=== PATIENT | female | born 1930 | race Caucasian/White ===

== ENCOUNTER 2017-03-13 08:28 | Inpatient (IN) ==
[2017-03-13] MEDS ORDERED: Ondansetron 4 MG/2 ML VIAL IVP ONE (08:45)
[2017-03-13] MEDS ORDERED: 0.9 % Sodium Chloride 1,000 ML IVC ONE (08:45)
[2017-03-13] MEDS ORDERED: Sucralfate 1 GM TABLET PO STA (08:46)
--- NOTE | 2017-03-13 08:50 | Emergency Department Note ---
Disposition Clinical Impression: Enteritis, Hyponatremia, Odynophagia, HONG (acute kidney injury) Failure to thrive Qualifiers: Failure to thrive age range: in adult Qualified Code(s): R62.7 - Adult failure to thrive Dysphagia Qualifiers: Dysphagia type: unspecified Qualified Code(s): R13.10 - Dysphagia, unspecified Disposition: Admitted As Inpatient Condition: Undetermined Referrals: Franky Ortiz Jr, MD [Primary Care Provider] - Forms: ED Satisfaction Letter General Adult HPI - General Chief complaint: ED Nausea/Vomiting/Diarrhea Stated complaint: abd pain,N/V Time Seen by Provider: 03/13/17 08:33 Source: patient, family Mode of arrival: ambulatory Limitations: no limitations Nursing Notes Reviewed: Yes Vital Signs Reviewed: Yes - History of Present Illness HPI Narrative: 86-year-old female with history of hypertension, arrives to see emergency department complaining of epigastric and right upper quadrant pain that has been ongoing over the past month. The patient was seen in the emergency Department for diarrhea as well as nausea on February 14. The patient was noted to have stable hypertrophic gastric folds as well as nonspecific narrowing of the proximal ascending colon. The patient states that she has continued to experience nausea, heartburn-type feeling that worsens when she lays flat as well as vomiting bilious type fluid. The patient states that since has continued and she arrives to the emergency department with the symptoms. She denies any diarrhea, melena, hematochezia, hematemesis. Onset (ago): week(s) (4) Location: abdomen Radiation: abdomen Pain Severity: mild Pain Scale: 2 Quality: burning Consistency: intermittent, now resolved Improves with: nothing Worsens with: other (lying flat) Associated symptoms: Reports: nausea/vomiting, weakness Treatments Prior to Arrival: none - Related Data Home Medications Medication Instructions Recorded Confirmed Lansoprazole [Prevacid] 30 mg PO DAILY 03/13/17 03/13/17 Losartan Potassium [Cozaar] 100 mg PO DAILY 03/13/17 03/13/17 Metoprolol Succinate 100 mg PO DAILY 03/13/17 03/13/17 Potassium Chloride 20 mcg PO BID 03/13/17 03/13/17 Previous Rx's Medication Instructions Recorded Ondansetron ODT [Zofran ODT] 4 mg SL Q4HR PRN #6 tab.rapdis 02/27/17 Allergies Allergy/AdvReac Type Severity Reaction Status Date / Time aspirin Allergy See Verified 03/13/17 10:41 Comments Penicillins Allergy Rash Verified 03/13/17 10:41 Sulfa (Sulfonamide Allergy Rash Verified 03/13/17 10:41 Antibiotics) All systems ED: reviewed and negative except as stated. Constitutional: Reports: weakness. Denies: fever, chills Eyes: Denies: vision change ENT ED: Denies: dental pain, congestion Cardiovascular: Denies: chest pain, palpitations, dyspnea on exertion, edema, syncope Respiratory: Denies: cough, dyspnea, wheezes Gastrointestinal: Reports: abdominal pain, nausea, vomiting. Denies: diarrhea, constipation, hematemesis, melena, hematochezia Genitourinary: Denies: urgency, dysuria Musculoskeletal: Denies: back pain, neck pain, arthralgia, myalgia Integumentary: Denies: rash Neurological: Denies: headache, weakness, numbness Past Medical History - Past Medical History Attestation: Yes The following information was validated with the patient. Source: patient Medical history: Reports: diabetes, hypertension Surgical history: Reports: non-contributory Psychiatric history: Reports: no psych history - Social History Smoking Status: Never smoker Smokeless Tobacco Status: No Alcohol use: Reports: none Drug use: Reports: none Physical Exam - General Limitations: no limitations General appearance: alert, in no apparent distress - Head Head exam: atraumatic, normocephalic, normal inspection - Eye Eye exam: Present: normal appearance, PERRL, EOMI - ENT ENT exam: normal exam, normal oropharynx, mucous membranes moist - Neck Neck exam: Present: normal inspection, full ROM, trachea midline - Chest Chest inspection: Present: normal inspection, symmetric chest wall rise - Respiratory Respiratory exam: Present: normal lung sounds bilaterally - Cardiovascular Cardiovascular exam: Present: regular rate, normal rhythm, normal heart sounds - Abdominal Exam Abdominal exam: Present: soft, tenderness. Absent: distention, guarding, rebound, rigidity, heel tap sign, Pascual's sign, Rovsing's sign, tenderness at McBurney's Point Abdominal tenderness: Present: RUQ, epigastrium, moderate - Extremities Exam Extremities exam: Present: normal inspection, full ROM. Absent: tenderness, pedal edema Course Vital Signs Temperature 97.9 F 03/13/17 08:28 Pulse Rate 78 03/13/17 08:28 Respiratory Rate 20 03/13/17 08:28 Blood Pressure 144/90 03/13/17 08:28 O2 Sat by Pulse Oximetry 100 03/13/17 08:28 Temperature 97.9 F 03/13/17 08:28 Pulse Rate 81 03/13/17 10:44 Respiratory Rate 18 03/13/17 10:44 Blood Pressure 140/97 03/13/17 10:44 O2 Sat by Pulse Oximetry 95 03/13/17 10:44 Oxygen Delivery Oxygen Delivery Room Air Medical Decision Making - MDM Narrative Medical decision making narrative: Workup in the emergency department demonstrates enteritis and inflammation of the jejunum. The patient was also noted to be hyponatremic with a sodium of 124. The patient is also noted to have an acute kidney injury on her chronic kidney disease. The patient has been experiencing symptoms consistent with reflux. We will begin the patient on Protonix with the patient's inflammation of her jejunum on CT scan. Given the patient's pain and symptoms of dysphagia and worsening difficulty in eating solids, we will admit the patient to the hospitalist for further care and workup. The patient was made aware and agrees to plan. The patient's daughter agrees that the patient should be admitted. The patient did receive 1 L of IV fluid here in the emergency department. We will speak with the process safety management engineer who gave a recommendation of repeat the sodium later today. He states he will be consulted on the patient. We will admit the patient to the hospitalist service at this time, accepted by Dr. Carvajal. - Medical Records Medical records reviewed: Yes I reviewed the patient's medical records. - Lab Data Lab results reviewed: Yes I reviewed the patient's lab results. Result diagrams: 03/13/17 08:56 03/13/17 08:56 Lab Results 03/13/17 03/13/17 03/13/17 Range/Units 08:50 08:56 08:56 WBC 16.8 H (4.3-11.1) K/mcL RBC 4.19 (3.82-4.97) M/mcL Hgb 13.3 (11.5-15.4) g/dL Hct 38.2 (35.3-44.9) % MCV 91.2 (83.0-100.0) fL MCH 31.7 (28.0-33.3) pg MCHC 34.8 (31.6-35.5) g/dL RDW 12.9 (11.5-14.5) % Plt Count 534 H (140-400) K/mcL MPV 9.8 (9.4-12.4) fL Immature Gran % 0.7 (0-4) % Seg Neutrophils % 75.0 % Lymphocytes % 17.4 % Monocytes % 6.0 % Eosinophils % 0.5 % Basophils % 0.4 % Neutrophils # 12.6 H (1.6-8.9) K/mcL Lymphocytes # 2.9 (0.6-4.6) K/mcL Monocytes # 1.0 (0.0-1.3) K/mcL Eosinophils # 0.1 (0.0-0.6) K/mcL Basophils # 0.1 (0.0-0.2) K/mcL Sodium 124 L (136-145) mEq/L Potassium 5.1 H (3.5-4.5) mEq/L Chloride 96 L (98-109) mEq/L Carbon Dioxide 16 L (19-29) mEq/L BUN 19 (7-20) mg/dL Creatinine 1.36 H (0.57-1.11) mg/dL Est GFR ( Amer) 45 L (> 60) Est GFR (Non-Af Amer) 37 L (> 60) BUN/Creatinine Ratio 14 (6-26) Glucose 140 H (70-99) mg/dL Calculated Osmolality 263 L (280-300) Calcium 9.6 (8.6-10.8) mg/dL Total Bilirubin 0.9 (0.2-1.2) mg/dL Direct Bilirubin 0.3 (0.0-0.5) mg/dL Indirect Bilirubin 0.6 (0.0-1.2) mg/dL AST 21 (5-34) Units/L ALT 18 (0-55) Units/L Alkaline Phosphatase 62 (38-126) Units/L Troponin I (0-0.03) ng/mL Serum Total Protein 7.4 (6.0-8.3) g/dL Albumin 3.7 (3.5-5.0) g/dL Globulin 3.7 H (2.4-3.5) g/dL Albumin/Globulin Ratio 1.0 L (1.1-2.2) Lipase 28 (8-78) Units/L Urine Color Yellow (Yellow) Urine Clarity Slightly Hazy (Clear) Urine pH 6.0 (5.0-8.0) pH Units Ur Specific [place] 1.017 (1.010-1.025) Urine Protein Negative (Neg-Trace) mg/dL Urine Glucose (UA) Normal (Normal) mg/dL Urine Ketones Negative (Negative) mg/dL Urine Blood Negative (Negative) Urine Nitrite Negative (Negative) Urine Bilirubin Negative (Negative) Urine Urobilinogen Normal (Normal) mg/dL Ur Leukocyte Esterase Negative (Negative) Ur Culture Indicated? NO (NO) 03/13/17 Range/Units 08:56 WBC (4.3-11.1) K/mcL RBC (3.82-4.97) M/mcL Hgb (11.5-15.4) g/dL Hct (35.3-44.9) % MCV (83.0-100.0) fL MCH (28.0-33.3) pg MCHC (31.6-35.5) g/dL RDW (11.5-14.5) % Plt Count (140-400) K/mcL MPV (9.4-12.4) fL Immature Gran % (0-4) % Seg Neutrophils % % Lymphocytes % % Monocytes % % Eosinophils % % Basophils % % Neutrophils # (1.6-8.9) K/mcL Lymphocytes # (0.6-4.6) K/mcL Monocytes # (0.0-1.3) K/mcL Eosinophils # (0.0-0.6) K/mcL Basophils # (0.0-0.2) K/mcL Sodium (136-145) mEq/L Potassium (3.5-4.5) mEq/L Chloride (98-109) mEq/L Carbon Dioxide (19-29) mEq/L BUN (7-20) mg/dL Creatinine (0.57-1.11) mg/dL Est GFR ( Amer) (> 60) Est GFR (Non-Af Amer) (> 60) BUN/Creatinine Ratio (6-26) Glucose (70-99) mg/dL Calculated Osmolality (280-300) Calcium (8.6-10.8) mg/dL Total Bilirubin (0.2-1.2) mg/dL Direct Bilirubin (0.0-0.5) mg/dL Indirect Bilirubin (0.0-1.2) mg/dL AST (5-34) Units/L ALT (0-55) Units/L Alkaline Phosphatase (38-126) Units/L Troponin I 0.01 (0-0.03) ng/mL Serum Total Protein (6.0-8.3) g/dL Albumin (3.5-5.0) g/dL Globulin (2.4-3.5) g/dL Albumin/Globulin Ratio (1.1-2.2) Lipase (8-78) Units/L Urine Color (Yellow) Urine Clarity (Clear) Urine pH (5.0-8.0) pH Units Ur Specific [place] (1.010-1.025) Urine Protein (Neg-Trace) mg/dL Urine Glucose (UA) (Normal) mg/dL Urine Ketones (Negative) mg/dL Urine Blood (Negative) Urine Nitrite (Negative) Urine Bilirubin (Negative) Urine Urobilinogen (Normal) mg/dL Ur Leukocyte Esterase (Negative) Ur Culture Indicated? (NO) - Radiology Data Radiology results reviewed: Yes I reviewed the patient's radiology results. Attestation Statement - Attestation Attestation: I examined this patient and my medical decision-making was reviewed with the Resident Physician, Dr. Muir. I agree with the documented findings, disposition and treatment plan as described except to the extent set forth below. Patient is an 86-year-old white female brought in today by her and daughter for ongoing symptoms of difficult swallowing, as well as epigastric pain that radiates up into her chest and into the back of her throat causing a burning-like sensation. Patient was evaluated for these symptoms at the end of January, underwent labs and CT imaging and was discharged home at that time. Patient states she has been unable to get an appointment with her doctor and her appetite has dwindled, she is unable to swallow solid foods without difficulty and she is eating mostly oats and yogurt according to her daughter. Patient appears clinically dehydrated with dry lips and mucous membranes. At the time of my evaluation following Carafate administration patient was denying any abdominal pain no chest pain she states the burning sensation in her chest had completely resolved and she does have burning in her throat and on the roof of her mouth. Patient now complaining of just generalized weakness, underlying nausea and decreased by mouth intake. I agree with patient's physical exam findings as documented. Vital signs are stable on arrival. Patient is awake alert and in no acute distress. Patient underwent lab evaluation including EKG and troponin as well as repeat CT imaging today. Due to her decreased GFR we had to do the study without contrast. Patient's CT shows evidence of enteritis today in association with a leukocytosis and left shift. Patient is also hyponatremic and has metabolic acidosis. Patient was hydrated with IV fluids as and has had improvement with medications of her symptoms and is resting comfortably at bedside at this time with stable vital signs. Patient will be admitted for further evaluation of the enteritis as well as a GI consult for her difficulty swallowing and tolerating solids. Case was discussed with the hospitalist who accepted the patient for admission.
[2017-03-13 09:07] LABS: Basophils # 0.1 K/mcL (0.0-0.2); Basophils % 0.4 %; Eosinophils # 0.1 K/mcL (0.0-0.6); Eosinophils % 0.5 %; Hematocrit 38.2 % (35.3-44.9); Hemoglobin 13.3 g/dL (11.5-15.4); Immature Granulocytes % 0.7 % (0-4); Lymphocytes # 2.9 K/mcL (0.6-4.6); Lymphocytes % 17.4 %; Mean Corpuscular HGB Conc 34.8 g/dL (31.6-35.5); Mean Corpuscular Hemoglobin 31.7 pg (28.0-33.3); Mean Corpuscular Volume 91.2 fL (83.0-100.0); Mean Platelet Volume 9.8 fL (9.4-12.4); Neutrophils # 12.6 K/mcL (1.6-8.9); Platelet Count 534 K/mcL (140-400); Red Blood Count 4.19 M/mcL (3.82-4.97); Red Cell Distribution Width 12.9 % (11.5-14.5)
[2017-03-13 09:09] LABS: Bilirubin,Urine Negative (Negative); Blood,Urine Negative (Negative); Color,Urine Yellow (Yellow); Glucose,Urine (UA) Normal (Normal); Ketones,Urine Negative (Negative); Leukocyte Esterase,Urine Negative (Negative); Nitrite,Urine Negative (Negative); Protein,Urine Negative (Neg-Trace); Specific Gravity,Urine 1.017 (1.010-1.025); Urobilinogen,Urine Normal (Normal)
[2017-03-13 09:12] LABS: Clarity,Urine Slightly Hazy (Clear)
[2017-03-13 09:20] LABS: Albumin 3.7 g/dL (3.5-5.0); Bilirubin,Direct 0.3 mg/dL (0.0-0.5); Bilirubin,Indirect 0.6 mg/dL (0.0-1.2); Bilirubin,Total 0.9 mg/dL (0.2-1.2); Calcium 9.6 mg/dL (8.6-10.8); Globulin 3.7 g/dL (2.4-3.5); Total Protein 7.4 g/dL (6.0-8.3)
[2017-03-13 09:21] LABS: Potassium 5.1 mEq/L (3.5-4.5)
[2017-03-13] MEDS ORDERED: Pantoprazole 80 MG in Water for inj. (sterile) 10 ML IVP ONE ×2 (10:17→11:00)
[2017-03-13] MEDS ORDERED: MetroNIDAZOLE 500 MG/100 ML 500 MG/100 ML BAG IVPB ONE (10:58)
[2017-03-13] MEDS ORDERED: Metoclopramide 10 MG/2 ML VIAL IVP PRN ×2 (11:35→12:24)
[2017-03-13] MEDS ORDERED: *HR* HYDROcodone/Acet 5/325 mg TABLET PO PRN (12:29)
[2017-03-13] MEDS ORDERED: *HR* Morphine 2 MG/ML SYRINGE IVP PRN (12:29)
[2017-03-13] MEDS ORDERED: Naloxone 0.4 MG/ML INJ IVP PRN (12:29)
[2017-03-13] MEDS ORDERED: Acetaminophen 325 MG TABLET PO PRN (12:29)
[2017-03-13] MEDS ORDERED: Dextrose Gel 15 GM PO PRN ×2 (12:30)
[2017-03-13] MEDS ORDERED: *HR* Dextrose 50 % in Water (Syg) 50 ML SYRINGE IVP PRN (12:30)
[2017-03-13] MEDS ORDERED: D5% in Water 1,000 ML IVC PRN (12:30)
--- NOTE | 2017-03-13 14:09 | Internal Med History&Physical ---
<Mil Mederos - Last Filed: 03/13/17 14:46> Date of Encounter: 03/13/17 Time of Encounter: 10:30 Assessment and Plan (1) Regional enteritis of jejunum Current visit: Yes Status: Acute Acute proximal jejunal enteritis. CT of the abdomen/pelvis today shows evidence of infectious or inflammatory enteritis involving a segment of the proximal jejunum. WBC 16.8 on admission. Pt. does not currently meet SIRS criteria. Pt. reports abdominal pain for the past month and states she has not been eating or drinking much for the past two weeks. IVPB ciprofloxacin 200 mg every 12 ordered due to patient's current renal dysfunction and IVPB Flagyl 500 mg Q8 for infection coverage. Continuous cardiac telemetry. Pt. reports GERD sx and feeling of food becoming stuck in her throat. GI consult ordered for possible EGD to r/o esophagitis, Baker's esophagus, etc. Nutrition consult ordered for PO supplementation. Will monitor pt. and f/u labs. Pt. discussed w/Dr. Carvajal who agrees w/plan of care. Pt. is at high risk for further morbidity based on current sx, reduced intake for the past two weeks, enteritis dx, and hx. Observation. Qualifiers: Digestive disease complication type: without complication Qualified Code(s) : K50.00 - Crohn's disease of small intestine without complications (2) Nausea Current visit: Yes Status: Acute Acute nausea related to current abdominal pain and dx of jejunal enteritis. IVP Reglan ordered for N/V. IVP Protonix 40 mg daily. Monitor I&O and daily weight. NPO except for medications with diet to be advanced as tolerated. (3) Hyponatremia Current visit: Yes Status: Acute Acute hyponatremia with sodium level of 124 on admission. Pt. received IV 0.9 NS. Will monitor f/u labs and sodium level. (4) Hyperkalemia Current visit: Yes Status: Acute Acute hyperkalemia w/potassium of 5.1 on admission. Will hold pts. potassium and monitor f/u labs. Continuous cardiac telemetry. (5) Diabetes Current visit: Yes Status: Chronic Hx of chronic diabetes controlled w/anti-hyperglycemic medications. Current BG is 140 on admission. Pt. does not currently take oral diabetes medications at this time. BG checks ACHS. A1c in a.m. labs. Administer low-dose correction sliding scale insulin and hypoglycemic protocol PRN. Qualifiers: Diabetes mellitus type: type 2 Diabetes mellitus complication status: with unspecified complications Diabetes mellitus chcf insulin use: without chcf use Qualified Code(s): E11.8 - Type 2 diabetes mellitus with unspecified complications (6) HTN (hypertension) Current visit: Yes Status: Chronic Hx of chronic HTN. Monitor pt. and VS. Continue pts. Cozaar and metoprolol. Qualifiers: Hypertension type: essential hypertension Qualified Code(s): I10 - Essential (primary) hypertension (7) CKD (chronic kidney disease) stage 3, GFR 30-59 ml/min Current visit: Yes Status: Chronic Acute kidney injury superimposed on chronic kidney disease. Current GFR is 37 and creatinine is 1.36 on admission. HONG most likely d/t current nausea and lack of intake. Pt. received IV 0.9 NS. Will monitor f/u labs and avoid nephrotoxins. Monitor I&O and daily weight. (8) DVT prophylaxis Current visit: Yes Status: Acute Heparin 5,000 units SQ Q8 for DVT prophylaxis. Monitor pt. for signs of bleeding. Internal Medicine - H&P: HPI Chief complaint: Nausea/Abdominal Pain Admitted From: Emergency Dept Plans for Post Hospital Care: Home History of present illness: Ms. Bolden is a 86 year old female with medical hx of diabetes controlled with oral antihyperglycemic medications, renal disease, GERD, and hypertension presents from the ED with chief complaint abdominal pain and nausea which worsened yesterday. Patient states she has had ongoing abdominal pain located in the epigastric and upper right quadrant past month. She also reports that she hasn't eaten much or had much liquid for the past two weeks. Patient was seen February 14 in the ED and discharged due to similar symptoms. Patient also reports heartburn type symptoms. Patient denies recent illness, fever, chills, vomiting, changes in vision, headache, cough, chest pain, palpitations, diarrhea, constipation, dizziness, lightheadedness, pre-syncope, or syncope. Past Med Surg Social Fam HX - Past Medical History Source: patient, old records reviewed, obtained from family Medical history: diabetes, GERD, hypertension, renal disease Psychiatric history: no psych history - Past Surgical History Surgical History: hysterectomy (Total), other (Upper and lower back fusions, right ankle surgery, hemorrhoid surgery) - Social History Smoking Status: Never smoker Smokeless Tobacco Status: No Alcohol use: none Drug use: none Current living situation: Home, With Family Activity Level: Uses cane/walker Recent Out of Country Travel Within the Last 8 Weeks: No Exposure or Possible Exposure to Illness During Travel: No - Family History Mother Race: Family Member Ethnicity: Non- Living Status: Age at : 72 Cause of : HD Hx Family Cardiac Disorders: Yes (HD, [place], Bilateral carotid blockages) Father Race: Family Member Ethnicity: Non- Living Status: Age at : 87 Cause of : Stroke Hx Family Cardiac Disorders: Yes (Stroke) Hx Family Respiratory Disorders: Yes (Emphysema) Hx Family GI Disorders: Yes (Crohn's disease) Brother Race: Family Member Ethnicity: Non- Living Status: Age at : 52 Cause of : Brain cancer Hx Family Cancer: Yes (Brain) Sister Race: Family Member Ethnicity: Non- Living Status: Age at : 87 Cause of : HD Hx Family Cardiac Disorders: Yes (HD) Hx Family Genitourinary Disorders: Yes (CKD) Internal Medicine - H&P: Meds Ondansetron ODT [Zofran ODT] 4 mg SL Q4HR PRN #6 tab.rapdis 02/27/17 [Rx] Lansoprazole [Prevacid] 30 mg PO DAILY 03/13/17 [History] Losartan Potassium [Cozaar] 100 mg PO DAILY 03/13/17 [History] Metoprolol Succinate 100 mg PO DAILY 03/13/17 [History] Potassium Chloride 20 mcg PO BID 03/13/17 [History] 3 Allergy/AdvReac Type Severity Reaction Status Date / Time aspirin Allergy See Verified 03/13/17 10:41 Comments Penicillins Allergy Rash Verified 03/13/17 10:41 Sulfa (Sulfonamide Allergy Rash Verified 03/13/17 10:41 Antibiotics) All Systems PM: A 10-system review of systems was performed and is negative for pertinent findings except as documented above in the HPI. - Constitutional Constitutional: as per HPI, anorexia, no chills, no fever(s), no night sweats - EENT Eyes: no change in vision, no discharge, no pain, no photophobia Ears: no ear discharge, no ear pain, no tinnitus Nose, mouth and throat: no dysphagia, no nasal discharge, no neck pain, no sore throat - Breasts Breasts: as per HPI - Cardiovascular Cardiovascular ROS IM: no chest pain, no diaphoresis, no dyspnea, no lightheadedness, no palpitations, no syncope - Respiratory Respiratory: no cough, no dyspnea, no wheezing, no excessive phlegm production - Gastrointestinal Gastrointestinal: as per HPI, abdominal pain, heartburn, nausea - Genitourinary Genitourinary: no change in urinary stream, no dysuria, no flank pain, no hematuria Menstruation: as per HPI, post hysterectomy (Total) - Musculoskeletal Musculoskeletal ROS IM: no numbness, no tingling - Integumentary Integumentary IM: no rash, no unusual bruising - Neurological Neurological ROS: no confusion, no convulsions, no focal weakness, no numbness, no tingling, no tremor(s) - Psychiatric Psychiatric: as per HPI - Endocrine Endocrine IM: as per HPI - Hematologic/Lymphatic Hematologic/Lymphatic: no easy bruising - Allergic/Immunologic Allergic/Immunologic: as per HPI - Constitutional Vitals: Temp Pulse Resp BP Pulse Ox 97.9 F 76 20 157/88 96 03/13/17 08:28 03/13/17 11:34 03/13/17 12:12 03/13/17 12:12 03/13/17 11:34 General appearance: Present: cooperative, mild distress, A&O X 3, pleasant, answers questions appropriately - Head Head exam: Present: atraumatic, normal inspection, normocephalic - Eye Eye exam: Present: PERRL, conjuntiva pink, sclera anicteric Pupils: Present: PERRL - ENT ENT exam: Present: normal exam, normal external ear exam - Neck Neck exam general surgery: Present: supple, trachea midline. Absent: lymphadenopathy - Respiratory Respiratory exam: Present: CTAB. Absent: accessory muscle use, rales, rhonchi, wheezes - Cardiovascular Cardiovascular exam: Present: +S1, +S2, tachycardia - GI/Abdominal GI/Abdominal exam: Present: diminished bowel sounds, guarding, normal bowel sounds, soft, tenderness, no peritoneal signs. Absent: distended - Rectal Rectal exam: Present: deferred - Additional comments: exam deferred. - Extremities Exam Extremities exam: Present: warm, radial pulses palpable and symmetrical. Absent : calf tenderness, cyanotic, pedal edema - Back Exam Back exam: Present: normal inspection - Neurological Exam Neurological exam: Present: CN II-XII intact, oriented X3, no focal deficits. Absent: pronater drift, facial droop, speech deficit - Psychiatric Psychiatric exam: Present: normal affect, normal mood - Skin Skin exam: Present: dry, intact Internal Med - H&P Results - Labs CBC & Chem 7: 03/13/17 08:56 03/13/17 08:56 - EKG Data EKG shows normal: sinus rhythm - EKG Data Prior EKG available for review: yes EKG comments: 03/13/17 14:17 EKG dated 09/12/14 shows sinus rhythm with sinus arrhythmia and septal myocardial infarction of indeterminate age. EKG dated 03/13/17 shows sinus rhythm with moderate ST depression. - Diagnostic Studies CT scan - abdomen Additional comments: Impressions Abdomen/Pelvis CT 03/13/17 08:50 IMPRESSION: Evidence of infectious or inflammatory enteritis involving a segment of proximal jejunum. D/ / Rubina Pfeiffer Cha, MD / Rubina Pfeiffer Cha, MD Interpreting Provider: Rubina Pfeiffer Cha, MD Chest x-ray Additional comments: Impressions Chest X-Ray 03/13/17 08:44 IMPRESSION: Clear lungs. Mild bullous changes. No acute abnormality. D/ / Stepan Sahni MD / Stepan Sahni MD Interpreting Provider: Stepan Sahni MD <Perez Carvajal T - Last Filed: 03/13/17 15:05> Date of Encounter: 03/13/17 Internal Medicine - H&P: HPI History of present illness: Ms. Bolden is a 86 year old female All Systems PM: A 10-system review of systems was performed and is negative for pertinent findings except as documented above in the HPI. - Constitutional Vitals: Temp Pulse Resp BP Pulse Ox 97.8 F 74 16 122/80 99 03/13/17 14:28 03/13/17 14:28 03/13/17 14:28 03/13/17 14:28 03/13/17 14:28 Internal Med - H&P Results - Labs CBC & Chem 7: 03/13/17 08:56 03/13/17 08:56 - Attending Attestation Seen and examined independently, daughter is at bedside, patient is a poor historian, and reviewed with ODELL Mederos 86 F with Dypsepsia, feeling of food stuck in her throat, nausea, anorexia. Place on observation for enteritis, GERD, acute on chronic hyponatremia, hyperkalemia Physical exam unremarkable Agree with supportive care, Cipro/Flagyl, GI for EGD-)GERD symptoms with food feeling stuck in throat and old age.), Repeat Chem today for Na and K. Rest as in details as in ODELL Mederos's documentation
[2017-03-13] MEDS: Insulin LISPRO 300 UNITS/3 ML VIAL SQ SCH ×2 (16:52→20:53)
[2017-03-13] MEDS: MetroNIDAZOLE 500 MG/100 ML 500 MG/100 ML BAG IVPB SCH ×2 (16:59→23:39)
[2017-03-13] MEDS: *HR* Heparin 5,000 UNIT/ML VIAL SQ SCH (21:01)
[2017-03-14] MEDS: *HR* Heparin 5,000 UNIT/ML VIAL SQ SCH ×3 (05:39→20:30)
[2017-03-14 05:57] LABS: Basophils # 0.1 K/mcL (0.0-0.2); Basophils % 0.6 %; Eosinophils # 0.2 K/mcL (0.0-0.6); Hematocrit 30.7 % (35.3-44.9); Immature Granulocytes % 1.1 % (0-4); Lymphocytes # 3.2 K/mcL (0.6-4.6); Lymphocytes % 28.2 %; Mean Corpuscular HGB Conc 34.2 g/dL (31.6-35.5); Mean Corpuscular Hemoglobin 31.7 pg (28.0-33.3); Mean Corpuscular Volume 92.7 fL (83.0-100.0); Mean Platelet Volume 10.3 fL (9.4-12.4); Monocytes # 1.1 K/mcL (0.0-1.3); Monocytes % 9.2 %; Neutrophils # 6.7 K/mcL (1.6-8.9); Platelet Count 375 K/mcL (140-400); Red Blood Count 3.31 M/mcL (3.82-4.97); Red Cell Distribution Width 13.2 % (11.5-14.5); Segmented Neutrophils % 58.9 %
[2017-03-14 06:08] LABS: Hemoglobin A1C 5.3 %
[2017-03-14 06:17] LABS: Hemoglobin 10.5 g/dL (11.5-15.4)
[2017-03-14 06:19] LABS: Albumin/Globulin Ratio 1.2 (1.1-2.2); Bilirubin,Total 0.8 mg/dL (0.2-1.2); Calcium 8.5 mg/dL (8.6-10.8); Chol/HDL Ratio 3.5 (0-4.9); Globulin 2.5 g/dL (2.4-3.5); Magnesium 1.2 mg/dL (1.6-2.6)
[2017-03-14 06:20] LABS: Albumin 2.9 g/dL (3.5-5.0); Potassium 3.9 mEq/L (3.5-4.5); Total Protein 5.4 g/dL (6.0-8.3)
--- NOTE | 2017-03-14 10:42 | Electrocardiograph Report ---
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
--- NOTE | 2017-03-14 10:49 | Nephrology Consult Note ---
Date of Encounter: 03/14/17 Time of Encounter: 10:42 Assessment and Plan (1) Hyponatremia Current Visit: Yes Status: Acute Patient presented with nausea and abdominal pain as well as poor by mouth intake. Sodium was 124 on presentation. This is acute on chronic S patient's baseline sodium appears to be in the low 130s. Patient appears somewhat forgetful but is otherwise asymptomatic. Her hyponatremia is likely related to hypovolemia in the setting of entritis and poor by mouth intake. A component of SIADH due to persistent nausea may also be contributing. Also per outpatient records the patient is on Bumex although does not on her med list here. If she is taking her Bumex at home this can also be contributing to hypovolemia. This morning her sodium is better at 128, which is close to her baseline, after receiving 1 L of normal saline on admission. Continue to encourage oral hydration once she is no longer nothing by mouth for GI evaluation. Continue to monitor sodium with a goal correction rate of 4-6 mEq in 24 hour period. We will check urine sodium and urine osmolality. CKD: Patient's serum creatinine was 1.36 on presentation with a GFR of 37. This appears slightly worse than her baseline but does not meet criteria for acute kidney injury by KDIGO guidelines. Creatinine is improved to 1.10 this morning. Her worsening of symptoms creatinine was likely related to prerenal causes in the setting of poor oral intake. Patient reports good urine output, UA is unremarkable with no protein, glucose, evidence of infection. We will continue to monitor serum creatinine and urine output. I have placed on hold on the patients losartan due to worsening renal function. Patient also has bumex listed on her outpatient medication list however it is unclear if she is currently taking this at home. I spoke with her pharmacy who does not have a record of recent fill for this medication. Patient states that her daughter helps her manage her medications so we will attempt to contact her for further clarification. Nevertheless we recommend holding diuretics in the setting for worsening renal function and hyponatremia. Avoid nephrotoxic agents including NSAIDs, renally dosed medications, IV contrast. Thank you for consulting [facility], we will continue to follow along. (2) CKD (chronic kidney disease) stage 3, GFR 30-59 ml/min Current Visit: Yes Status: Chronic (3) Diabetes Current Visit: Yes Status: Chronic Blood sugars under good control, management per primary. 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 Bolden is a pleasant 86-year-old female with history of CKD stage III, hypertension, GERD who presented to the emergency department yesterday with abdominal pain and nausea. She reports to me that she has occasional pain in her stomach that became worse yesterday so she decided to seek medical attention. She also reports mild nausea that has been persistent for the last several weeks. She denies vomiting. She reports a decrease in her appetite and oral intake. She reports recently starting new medication but she cannot remember which one. She denies any worsening confusion, falls, chest pain, shortness of breath. At this time she states that her abdominal pain, nausea. She reports good urine output. She denies diarrhea, dysuria, fever, chills. Patient reports using Tylenol home for pain, denies NSAID use. Past Med Surg Social Fam HX - Past Medical History Medical history: diabetes, hypertension Psychiatric history: no psych history - Past Surgical History Surgical History: non-contributory - Social History Smoking Status: Never smoker Smokeless Tobacco Status: No Alcohol use: none Drug use: none - Family History Mother Race: Family Member Ethnicity: Non- Living Status: Age at : 72 Cause of : HD Hx Family Cardiac Disorders: Yes (HD, [place], Bilateral carotid blockages) Father Race: Family Member Ethnicity: Non- Living Status: Age at : 87 Cause of : Stroke Hx Family Cardiac Disorders: Yes (Stroke) Hx Family Respiratory Disorders: Yes (Emphysema) Hx Family GI Disorders: Yes (Crohn's disease) Brother Race: Family Member Ethnicity: Non- Living Status: Age at : 52 Cause of : Brain cancer Hx Family Cancer: Yes (Brain) Sister Race: Family Member Ethnicity: Non- Living Status: Age at : 87 Cause of : HD Hx Family Cardiac Disorders: Yes (HD) Hx Family Genitourinary Disorders: Yes (CKD) Medications and Allergies Lansoprazole [Prevacid] 30 mg PO DAILY 03/13/17 [History] Losartan Potassium [Cozaar] 100 mg PO DAILY 03/13/17 [History] Metoprolol Succinate 100 mg PO DAILY 03/13/17 [History] Potassium Chloride 20 mcg PO BID 03/13/17 [History] 3 Allergy/AdvReac Type Severity Reaction Status Date / Time aspirin Allergy See Verified 03/13/17 10:41 Comments Penicillins Allergy Rash Verified 03/13/17 10:41 Sulfa (Sulfonamide Allergy Rash Verified 03/13/17 10:41 Antibiotics) Review of Systems All Systems: reviewed and no additional remarkable complaints except as stated Constitutional: no chills, no fever(s), no frequent falls, no headache(s), no weakness Nose, mouth and throat: no dizziness, no dry mouth Cardiovascular: no chest pain, no dyspnea, no edema, no lightheadedness, no syncope Respiratory: no cough, no excessive phlegm production, no change in phlegm color Gastrointestinal: abdominal pain, nausea, no diarrhea, no vomiting Musculoskeletal: no arthralgias Integumentary: no new lesions, no rash, no swelling, no unusual bruising Neurological: no abnormal gait, no behavioral changes, no confusion, no disequilibrium, no dizziness, no frequent falls, no headache(s), no numbness, no tingling, no other visual disturbances Psychiatric: no confusion Endocrine: no polydipsia, no polyuria Exam - Vital Signs Vital signs: Initial Vital Signs Temp Pulse Resp BP Pulse Ox 97.9 F 78 20 144/90 100 03/13/17 08:28 03/13/17 08:28 03/13/17 08:28 03/13/17 08:28 03/13/17 08:28 Vital Signs - Last 8 Hours Temp Pulse Resp BP Pulse Ox 03/14/17 07:33 97.6 F 65 14 129/75 99 03/14/17 03:19 97.4 F L 62 14 107/64 99 Intake and Output 03/13/17 03/14/17 03/14/17 23:59 07:59 15:59 Intake Total 100 / 100 Output Total 300 / 300 150 / 150 Balance -200 / -200 -150 / -150 Intake: IV Fluids 100 / 100 Cipro Premix 200 MG/100 ML 200 100 / 100 mg In 100 ml @ 100 mls/hr IVPB Q12HR PARMINDER Rx#:[id number] Output: Urine 300 / 300 150 / 150 Other: # Voids 2 Weight 62.051 kg Blood Glucose* 145 109 Patient Weight 03/14/17 23:59 Weight 62.051 kg - General Appearance General appearance: well-developed, well-nourished, appears started age EENT: ATNC, PERRL, mucous membranes moist Neck: supple Respiratory: clear Cardiology: no murmurs, no rub, no gallops, no edema, regular rate, regular rhythm, normal S1, normal S2 Gastrointestinal: normoactive bowel sounds, no tenderness, no guarding, no masses Integumentary: no rash, warm and dry Neurologic: no focal deficit, alert and oriented x3, reflexes 2+ and symmetric, strength 5/5, CN 3-12 intact Musculoskeletal: no deformities, no erythema, no cyanosis, no clubbing Psychiatric: mood/affect appropriate Results - Lab Results 03/14/17 04:45 03/14/17 04:45 Most recent lab results Calcium 8.5 mg/dL (8.6-10.8) L 03/14/17 04:45 Magnesium 1.2 mg/dL (1.6-2.6) L 03/14/17 04:45 Consult Discharge Plan - Plan Referrals: Franky Ortiz Jr, MD [Primary Care Provider] -
[2017-03-14] MEDS: Insulin LISPRO 300 UNITS/3 ML VIAL SQ SCH ×4 (11:08→20:23)
[2017-03-14] MEDS: MetroNIDAZOLE 500 MG/100 ML 500 MG/100 ML BAG IVPB SCH ×2 (11:12→19:05)
[2017-03-14] MEDS: Pantoprazole 40 MG VIAL IVP SCH (11:12)
[2017-03-14] MEDS: Metoprolol XL (24 HR) Succ 50 MG TAB.ER.24H PO SCH (11:30)
--- NOTE | 2017-03-14 13:40 | Gastroenterology Consult Note ---
Date of Encounter: 03/14/17 Time of Encounter: 11:30 - Assessment and plan (1) Regional enteritis of jejunum Current Visit: Yes Status: Acute Assessment and plan: CT abdomen shows jejunal enteritis. Pt presented with abdominal pain nausea and vomiting, needs push enteroscopy. Qualifiers: Digestive disease complication type: without complication Qualified Code(s) : K50.00 - Crohn's disease of small intestine without complications (2) Nausea Current Visit: Yes Status: Acute Assessment and plan: Improving - Time Spent With Patient Total time spent is greater than 50% in coordination of care (as documented) at patient's floor/unit and/or counseling patient: GI History of Present Illness - Data of Consult Patient: new to practice Consult date: 03/14/17 Requesting Physician: Perez Carvajal MD - Consult Narrative Reason for consult: dysphagia History of present illness: Ms. Bolden is a 86 year old female with medical hx of diabetes, renal disease, GERD, and hypertension presented with abdominal pain and nausea. She states she has had ongoing abdominal pain located in the epigastric and upper right quadrant past month. She also reports that she has had very poor po intake for thepast 2 weeks. Patient was seen February 14 in the ED and discharged due to similar symptoms. She complains of dysphagia on occasion and GERD. She denies recent illness, fever, chills, vomiting, changes in vision, headache, cough, chest pain, palpitations, diarrhea, constipation, dizziness, lightheadedness, pre-syncope, or syncope. CT showed jejunal enteritis. Hgb was 13.3 and has dropped to 10.5. NSAIDS: denies Anticoagulants: heparin EGD: denies COLON: denies Past Med Surg Social Fam HX - Past Medical History Medical history: diabetes, hypertension Psychiatric history: no psych history - Past Surgical History Surgical History: non-contributory - Social History Smoking Status: Never smoker Smokeless Tobacco Status: No Alcohol use: none Drug use: none - Family History Mother Race: Family Member Ethnicity: Non- Living Status: Age at : 72 Cause of : HD Hx Family Cardiac Disorders: Yes (HD, [place], Bilateral carotid blockages) Father Race: Family Member Ethnicity: Non- Living Status: Age at : 87 Cause of : Stroke Hx Family Cardiac Disorders: Yes (Stroke) Hx Family Respiratory Disorders: Yes (Emphysema) Hx Family GI Disorders: Yes (Crohn's disease) Brother Race: Family Member Ethnicity: Non- Living Status: Age at : 52 Cause of : Brain cancer Hx Family Cancer: Yes (Brain) Sister Race: Family Member Ethnicity: Non- Living Status: Age at : 87 Cause of : HD Hx Family Cardiac Disorders: Yes (HD) Hx Family Genitourinary Disorders: Yes (CKD) Review of Systems: GI: as per [place] GENERAL: denies fever, has some chills EYES: denies yellow discoloration ENT: denies pain with swallowing or difficulty swallowing CARDIO: denies chest pain, palpitations RESP: No Shortness of breath with exertion : denies change in color of urine NEURO: denies any weakness HEME: Denies any bruising MS: denies joint pain, joint swelling or back pain. DERM: denies rash or itching PSYCH: Denies history of anxiety or depression - Constitutional Vitals: Temp Pulse Resp BP Pulse Ox 97.5 F L 100 18 150/88 97 03/14/17 11:41 03/14/17 11:41 03/14/17 11:41 03/14/17 11:41 03/14/17 11:41 Exam: CONSTITUTIONAL:~alert, no acute distress.~HEAD:~normocephalic.~EYES:~no jaundice.~NECK:~no obvious swelling.~HEART:~regular rate and rhythm, no murmurs. ~LUNGS:~bilateral good air entry.~ABDOMEN:~non distended, soft, non tander, no masses pulpable, no organomegaly.~RECTAL EXAM:~Deferred.~EXTREMITIES:~no clubbing, cyanosis or edema.~SKIN:~no stigmata of chronic liver disease.~ NEUROLOGIC:~no obvious focal defect.~~~~ Results - Labs CBC & Chem 7: 03/14/17 04:45 03/14/17 04:45 Labs: Last Result Calcium 8.5 mg/dL (8.6-10.8) L 03/14/17 04:45 Troponin I 0.01 ng/mL (0-0.03) 03/13/17 08:56 Triglycerides 109 mg/dL (< 150) 03/14/17 04:45 Entire Visit Hgb 10.5 g/dL (11.5-15.4) L D 03/14/17 04:45 Hct 30.7 % (35.3-44.9) L 03/14/17 04:45 Total Bilirubin 0.8 mg/dL (0.2-1.2) 03/14/17 04:45 AST 12 Units/L (5-34) 03/14/17 04:45 ALT 13 Units/L (0-55) 03/14/17 04:45 Lipase 28 Units/L (8-78) 03/13/17 08:56 Consult Discharge Plan - Plan Referrals: Franky Ortiz Jr, MD [Primary Care Provider] -
--- NOTE | 2017-03-14 14:40 | Internal Med Progress Note ---
Date of Encounter: 03/14/17 Time of Encounter: 14:38 - Assessment and plan (1) Enteritis Current Visit: Yes Status: Acute Assessment and plan: Improving, continue cipro and flagyl (2) Hyponatremia Current Visit: Yes Status: Acute Assessment and plan: Acute on chronic Continue current care, no IVF indicated Nephrol eval noted (3) Odynophagia Current Visit: Yes Status: Acute Assessment and plan: Patient with known hx of GERD, complaining of feeds and meds getting stuck, as well as pain Patient also has dyspepsia and this is a second admission for same GI consulted, possible EGD (4) Diabetes Current Visit: Yes Status: Chronic Assessment and plan: FS are acceptable, diet controlled, continue same Qualifiers: Diabetes mellitus type: type 2 Diabetes mellitus complication status: with unspecified complications Diabetes mellitus long-term insulin use: 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 Qualified Code(s): E11.8 - Type 2 diabetes mellitus with unspecified complications (5) HTN (hypertension) Current Visit: Yes Status: Chronic Assessment and plan: Continue home meds Qualifiers: Hypertension type: essential hypertension Qualified Code(s): I10 - Essential (primary) hypertension (6) CKD (chronic kidney disease) stage 3, GFR 30-59 ml/min Current Visit: Yes Status: Chronic Assessment and plan: Renal function is at baseline (7) DVT prophylaxis Current Visit: Yes Status: Acute Assessment and plan: Heparin SQ - Subjective Interval history: Seen and evaluated at bedside States her abdominal symptoms have improved She is awaiting GI eval /EGD - Constitutional Vitals: Temp Pulse Resp BP Pulse Ox 97.5 F L 100 18 150/88 97 03/14/17 11:41 03/14/17 11:41 03/14/17 11:41 03/14/17 11:41 03/14/17 11:41 General appearance: Present: cooperative, A&O X 3, pleasant, no acute distress, answers questions appropriately - Head Head exam: Present: atraumatic, normocephalic - Eye Eye exam: Present: PERRL, conjuntiva pink, sclera anicteric Pupils: Present: PERRL - Neck Neck exam general surgery: Present: supple, trachea midline. Absent: lymphadenopathy - Respiratory Respiratory exam: Present: CTAB. Absent: accessory muscle use, rales, rhonchi, wheezes - Cardiovascular Cardiovascular exam: Present: RRR, +S1, +S2. Absent: diastolic murmur, gallop, rubs, systolic murmur - GI/Abdominal GI/Abdominal exam: Present: normal bowel sounds, soft, no peritoneal signs. Absent: distended, tenderness - Extremities Exam Extremities exam: Present: warm, radial pulses palpable and symmetrical. Absent : calf tenderness, cyanotic, pedal edema - Neurological Exam Neurological exam: Present: alert, CN II-XII intact, oriented X3, no focal deficits. Absent: pronater drift, facial droop, speech deficit - Skin Skin exam: Present: dry, intact Internal Medicine: Result - Labs CBC & Chem 7: 03/14/17 04:45 03/14/17 04:45 Labs: Short CBC 03/14/17 Range/Units 04:45 WBC 11.4 H (4.3-11.1) K/mcL Hgb 10.5 L D (11.5-15.4) g/dL Hct 30.7 L (35.3-44.9) % Plt Count 375 (140-400) K/mcL Neutrophils # 6.7 (1.6-8.9) K/mcL BMP 03/14/17 04:45 Sodium 128 L Potassium 3.9 D Chloride 101 Carbon Dioxide 17 L BUN 13 Creatinine 1.10 Glucose 92 Calcium 8.5 L Liver Function 03/14/17 Range/Units 04:45 Total Bilirubin 0.8 (0.2-1.2) mg/dL AST 12 (5-34) Units/L ALT 13 (0-55) Units/L Alkaline Phosphatase 48 (38-126) Units/L Albumin 2.9 L D (3.5-5.0) g/dL Consult Discharge Plan - Plan Referrals: Franky Ortiz Jr, MD [Primary Care Provider] -
[2017-03-15] MEDS ORDERED: MetroNIDAZOLE 500 MG/100 ML 500 MG/100 ML BAG IVPB SCH (03:00)
[2017-03-15 04:41] LABS: Basophils % 0.4 %; Eosinophils # 0.2 K/mcL (0.0-0.6); Eosinophils % 1.8 %; Hematocrit 32.8 % (35.3-44.9); Immature Granulocytes % 0.7 % (0-4); Lymphocytes % 18.3 %; Mean Corpuscular HGB Conc 33.5 g/dL (31.6-35.5); Mean Corpuscular Hemoglobin 31.3 pg (28.0-33.3); Mean Corpuscular Volume 93.4 fL (83.0-100.0); Monocytes % 9.1 %; Neutrophils # 7.6 K/mcL (1.6-8.9); Platelet Count 403 K/mcL (140-400); Red Blood Count 3.51 M/mcL (3.82-4.97); Red Cell Distribution Width 13.2 % (11.5-14.5); Segmented Neutrophils % 69.7 %
[2017-03-15 04:56] LABS: Alanine Aminotransferase 8 Units/L (0-55); Albumin 3.2 g/dL (3.5-5.0); Albumin/Globulin Ratio 1.3 (1.1-2.2); Alkaline Phosphatase 52 Units/L (38-126); Aspartate Amino Transferase 11 Units/L (5-34); Bilirubin,Total 0.6 mg/dL (0.2-1.2); Blood Urea Nitrogen 10 mg/dL (7-20); Calcium 9.3 mg/dL (8.6-10.8); Carbon Dioxide 17 mEq/L (19-29); Chloride 102 mEq/L (98-109); Globulin 2.5 g/dL (2.4-3.5); Glucose 103 mg/dL (70-99); Osmolality,Calculated 265 (280-300); Sodium 128 mEq/L (136-145); Total Protein 5.7 g/dL (6.0-8.3)
[2017-03-15 05:13] LABS: BUN/Creatinine Ratio 10 (6-26); eGFR For African Americans > 60 (> 60); eGFR For Non-African Americans 53 (> 60)
[2017-03-15] MEDS: *HR* Heparin 5,000 UNIT/ML VIAL SQ SCH (07:28)
[2017-03-15] MEDS: Insulin LISPRO 300 UNITS/3 ML VIAL SQ SCH (07:35)
[2017-03-15] MEDS: Pantoprazole 40 MG VIAL IVP SCH (08:51)
[2017-03-15] MEDS: Metoprolol XL (24 HR) Succ 50 MG TAB.ER.24H PO SCH (08:51)
--- NOTE | 2017-03-15 10:56 | Anesthesia Evaluation PreOp ---
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 ROUTER OPERATOR History: Denies Any Significant HX Other Medical History: Renal (CKD 3), Diabetes Type II, GERD Anesthesia History: No Prior Anesthetic Complications, Past Anesthesia (BOZENA, cervical and lumbar fusion, ORIF right ankle) : No Alcohol Use: none Drug use: none Medications and Allergies Ondansetron ODT [Zofran ODT] 4 mg SL Q4HR PRN #6 tab.rapdis 02/27/17 [Rx] Lansoprazole [Prevacid] 30 mg PO DAILY 03/13/17 [History] Losartan Potassium [Cozaar] 100 mg PO DAILY 03/13/17 [History] Metoprolol Succinate 100 mg PO DAILY 03/13/17 [History] Potassium Chloride 20 mcg PO BID 03/13/17 [History] Bumetanide [Bumex] 1 tab PO DAILY 03/14/17 [History] 3 Allergy/AdvReac Type Severity Reaction Status Date / Time aspirin Allergy See Verified 03/13/17 10:41 Comments Penicillins Allergy Rash Verified 03/13/17 10:41 Sulfa (Sulfonamide Allergy Rash Verified 03/13/17 10:41 Antibiotics) - Meds/Allergy Pre-op Review Medications Reviewed: Yes Allergies Reviewed: Yes Beta Blockers on Current Med List: Yes If Beta Blockers taken, Date/Time (Last Dose taken): today 0851 Anesthesia Results - Labs 03/15/17 03:58 03/15/17 03:58 - Imaging EKG: report reviewed (NSR) Anesthesia Exam Selected Entries 03/15/17 07:21 Temperature 98 F Pulse Rate 59 Respiratory Rate 16 Blood Pressure 148/79 O2 Sat by Pulse Oximetry 98 Weight: 60kg NPO (# of Hours): 8 - PORTABLE ROUTER OPERATOR LOC: Oriented PORTABLE ROUTER OPERATOR Motor: Normal RUE, Normal LUE, Normal RLE, Normal LLE, Normal Face PORTABLE ROUTER OPERATOR Sensory: Normal: RUE, LUE, RLE, LLE, Face - Cardiac Rhythm: Regular Murmur: None - Pulmonary Breath Sounds: bilateral Clear Respiratory Effort: Symmetrical Anesthesia Assess/Plan ASA Score: 3 Modified Christine Scale for Level of Consciousness: Cooperative, oriented, and tranquil Anesthetic Plan: MAC Monitoring Plan: Standard Monitors Recovery Plan: Other
--- NOTE | 2017-03-15 11:07 | Discharge Summary ---
Date of Encounter: 03/15/17 Time of Encounter: 11:16 - Discharge Diagnosis (1) Regional enteritis of jejunum Priority: Primary Status: Acute Comments: presented with abdominal pain, nausea, vomiting. ABD/pelvis CT showed regional enteritis of jejunum. Cipro, Flagyl started on arrival. Evaluated by GI who recommended push enteroscopy however patient did not want to stay inpatient for procedure. Discussed with GI and okay to discharge home with outpatient follow- up as symptoms improved. Continue Cipro for 5 days at discharge per GI recommendations. Qualifiers: Digestive disease complication type: without complication Qualified Code(s) : K50.00 - Crohn's disease of small intestine without complications (2) Hyponatremia Priority: Primary Status: Chronic Comments: Na 124; has known history of chronic hyponatremia. Evaluated by Nephrology who noted acute on chronic hyponatremia most likely from prerenal/hypovolemia in the setting of poor PO intake secondary to enteritis. Na improved to 128 at time of discharge. Asymptomatic; neurologically intact. Recommend repeat BMP within 1 week. Follow-up with nephrology outpatient. (3) Odynophagia Priority: Primary Status: Acute Comments: known history of GERD. Patient reported food, medication getting stat as well as pain when swallowing. Evaluated by GI recommended push enteroscopy; procedure was postponed due to scheduling difficulties and patient decided to follow-up with GI outpatient. Cont PPI (4) CKD (chronic kidney disease) stage 3, GFR 30-59 ml/min Priority: Secondary Status: Chronic Comments: per hx. Renal function at baseline at discharge. Holding bumex per Nephrology. Will need repeat BMP in 1 week, follow-up with Nephrology outpatient (5) Diabetes Priority: Secondary Status: Chronic Comments: per hx. Diet controlled. Qualifiers: Diabetes mellitus type: type 2 Diabetes mellitus complication status: with unspecified complications Diabetes mellitus detention insulin use: without long term care pharmacist use Qualified Code(s): E11.8 - Type 2 diabetes mellitus with unspecified complications - Discharge Medications Prescriptions: amLODIPine [Norvasc] 2.5 mg PO DAILY #30 tablet Ciprofloxacin [Cipro] 500 mg PO BID #10 tablet Home Medications: Ondansetron ODT [Zofran ODT] 4 mg SL Q4HR PRN #6 tab.rapdis 02/27/17 [Rx] Lansoprazole [Prevacid] 30 mg PO DAILY 03/13/17 [History] Metoprolol Succinate 100 mg PO DAILY 03/13/17 [History] Potassium Chloride 20 mcg PO BID 03/13/17 [History] Ciprofloxacin [Cipro] 500 mg PO BID #10 tablet 03/15/17 [Rx] amLODIPine [Norvasc] 2.5 mg PO DAILY #30 tablet 03/15/17 [Rx] Allergies/Adverse Reactions: 3 Allergy/AdvReac Type Severity Reaction Status Date / Time aspirin Allergy See Verified 03/13/17 10:41 Comments Penicillins Allergy Rash Verified 03/13/17 10:41 Sulfa (Sulfonamide Allergy Rash Verified 03/13/17 10:41 Antibiotics) Date of admission: 03/14/17 18:51 Primary care physician: Franky Ortiz Jr, MD Discharging clinician: Yulia Jensen date of discharge: 03/15/17 - Patient Status Disposition: Home, Self-Care Condition: Good Functional capacity at discharge: independent ambulation Overall status at discharge: patient is back to baseline - Discharge Instructions Instructions: Hyponatremia (DC), Amlodipine (By mouth), Gastroenteritis (DC), Ciprofloxacin (By mouth) Follow Up With: Franky Ortiz Jr, MD [Primary Care Provider] - - Diet and Activity Activity: increase activity as tolerated Diet: advance to your usual diet Interval History: Seen and examined that time. Patient is new to me, information obtained from chart review and patient report. Patient is upset and tearful during exam. Says she feels fine and wants to go home. She denies abdominal pain, no nausea vomiting or diarrhea. She does not want to stay to have procedure done. Discussed with Rhonda James CMP with GI and okay for patient to discharge home on oral Cipro with outpatient GI follow-up. Also discussed with nephrology and will hold Bumex and stop ARB at discharge. Start low-dose amlodipine. Will need to follow up with GI and nephrology outpatient. Hospital course: See assessment and plan for hospital course - Time Spent with Patient Total time spent providing and/or coordinating discharge services: - Constitutional Vitals: Temp Pulse Resp BP Pulse Ox 98 F 59 16 148/79 98 03/15/17 07:21 03/15/17 07:21 03/15/17 07:21 03/15/17 07:21 12/19/17 07:21 General appearance: Present: cooperative, A&O X 3, pleasant, no acute distress, answers questions appropriately - Head Head exam: Present: atraumatic, normocephalic - Eye Eye exam: Present: PERRL, conjuntiva pink, sclera anicteric Pupils: Present: PERRL - Neck Neck exam general surgery: Present: supple, trachea midline. Absent: lymphadenopathy - Respiratory Respiratory exam: Present: CTAB. Absent: accessory muscle use, rales, rhonchi, wheezes - Cardiovascular Cardiovascular exam: Present: RRR, +S1, +S2. Absent: diastolic murmur, gallop, rubs, systolic murmur - GI/Abdominal GI/Abdominal exam: Present: normal bowel sounds, soft, no peritoneal signs. Absent: distended, tenderness - Extremities Exam Extremities exam: Present: warm, radial pulses palpable and symmetrical. Absent : calf tenderness, cyanotic, pedal edema - Neurological Exam Neurological exam: Present: CN II-XII intact, oriented X3, no focal deficits. Absent: pronater drift, facial droop, speech deficit - Skin Skin exam: Present: dry, intact
--- NOTE | 2017-03-15 11:08 | Nephrology Progress Note ---
Date of Encounter: 03/15/17 Time of Encounter: 11:06 - Assessment and Plan (1) Hyponatremia Current Visit: Yes Status: Chronic Sodium is stable today at 128. Still seems hypovolemic on exam. If remains nothing by mouth we will start IV fluids however if the patient is discharged would recommend adequate oral intake at home with a follow-up BMP in 1 week. Would recommend discontinuing losartan due to the risk of resetting her Osmostat as well as a HONG. Recommend starting amlodipine 2.5 mg daily. Recommend to continue holding Bumex at discharge. Patient should follow-up as an outpatient with nephrology. CKD: Renal function improved today and appears to be at baseline. Patient has good urine output. Recommend good by mouth intake and medication changes as above. Avoid nephrotoxic agents including NSAIDs, renally dose medications, and IV contrast. 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 Patient states that she feels good today. She has no complaints at this time. She states that she is ready to leave. She states that she is hungry. She denies fever, chills, abdominal pain , nausea, vomiting, diarrhea, chest pain, shortness of breath. Objective - Vital Signs Vital signs: Vital Signs Temp Pulse Resp BP Pulse Ox 03/15/17 07:21 98 F 59 16 148/79 98 03/15/17 03:07 98.3 F 62 12 147/82 97 03/14/17 23:11 98.3 F 88 16 128/78 97 03/14/17 19:24 98.2 F 68 16 112/71 98 Intake and Output 03/14/17 03/15/17 03/15/17 23:59 07:59 15:59 Intake Total 100 / 100 100 / 100 100 / 100 Output Total 500 / 500 Balance 100 / 100 -400 / -400 100 / 100 Intake: IV Fluids 100 / 100 100 / 100 100 / 100 Cipro Premix 200 MG/100 ML 200 100 / 100 100 / 100 mg In 100 ml @ 100 mls/hr IVPB Q12HR [facility] Rx#:[id number] Flagyl Premix 500 MG/100 ML 500 100 / 100 mg In 100 ml @ 100 mls/hr IVPB Q8H [facility] Rx#:[id number] Output: Urine 500 / 500 Other: Weight 60.373 kg Blood Glucose* 163 103 Patient Weight 03/15/17 23:59 Weight 60.373 kg - General Appearance General appearance: Present: well-developed, well-nourished EENT: Present: ATNC, PERRL, mucous membranes moist Neck: Present: supple Respiratory: Present: clear Cardiology: Present: no murmurs, no rub, no gallops, no edema, regular rate, regular rhythm Gastrointestinal: Present: normoactive bowel sounds, no tenderness, no guarding Integumentary: Present: no rash, warm and dry Neurologic: Present: no focal deficit, alert and oriented x3 Musculoskeletal: Present: no deformities, no cyanosis, no clubbing Psychiatric: Present: mood/affect appropriate - Lab 03/15/17 03:58 03/15/17 03:58 Most recent lab results Calcium 9.3 mg/dL (8.6-10.8) 03/15/17 03:58 Magnesium 1.2 mg/dL (1.6-2.6) L 03/14/17 04:45 Urine Creatinine 40 mg/dL 03/14/17 23:20 Urine Sodium 20.0 mEq/L 03/14/17 23:20 Consult Discharge Plan - Plan Instructions: Ciprofloxacin (By mouth), Amlodipine (By mouth), Chronic Kidney Disease (DC), Hyponatremia (DC), Gastroenteritis (DC) Referrals: Franky Ortiz Jr, MD [Primary Care Provider] - 03/24/17 2:00 pm Carl Ritter MD [Partnered Physician] - Prescriptions: amLODIPine [Norvasc] 2.5 mg PO DAILY #30 tablet Ciprofloxacin [Cipro] 500 mg PO BID #10 tablet
[2017-03-15] MEDS ORDERED: 0.9 % Sodium Chloride 1,000 ML IVC SCH (11:15)
[2017-03-15] MEDS ORDERED: amLODIPine 5 MG TABLET PO SCH (11:15)
[2017-03-15 11:17] VITALS: BP 149/88
== END 2017-03-15 12:34 | disposition home or self-care (01) | DRG 386 ==
LOC: 3BNU 08:28 → EMEROO 08:28 → SUATTDRO 11:42 → 3BNU 12:13
PROVIDERS: ADMIT Internal Medicine; ATTEND Internal Medicine

== ENCOUNTER 2019-04-24 07:39 | Observation (INO) ==
[2019-04-24 08:14] LABS: Basophils # 0.1 K/mcL (0.0-0.2); Basophils % 1.1 %; Eosinophils # 0.3 K/mcL (0.0-0.6); Eosinophils % 3.7 %; Hematocrit 36.9 % (35.3-44.9); Hemoglobin 12.1 g/dL (11.5-15.4); Lymphocytes # 1.1 K/mcL (0.6-4.6); Lymphocytes % 15.8 %; Mean Corpuscular HGB Conc 32.8 g/dL (31.6-35.5); Mean Corpuscular Volume 97.6 fL (83.0-100.0); Monocytes # 0.6 K/mcL (0.0-1.3); Neutrophils # 4.7 K/mcL (1.6-8.9); Platelet Count 275 K/mcL (140-400); Red Blood Count 3.78 M/mcL (3.82-4.97); Red Cell Distribution Width 13.9 % (11.5-14.5); Segmented Neutrophils % 67.4 %
[2019-04-24 08:35] LABS: Albumin 4.3 g/dL (3.5-5.7); Albumin/Globulin Ratio 1.9 (1.1-2.2); Bilirubin,Total 0.5 mg/dL (0.3-1.0); Calcium 9.6 mg/dL (8.6-10.3); Globulin 2.3 g/dL (2.4-3.5); Potassium 4.3 mEq/L (3.5-5.1); Total Protein 6.6 g/dL (6.4-8.9)
[2019-04-24] MEDS ORDERED: Naloxone 0.4 MG/ML INJ IVP PRN (08:47)
[2019-04-24] MEDS ORDERED: Dextrose Gel 15 GM/37.5 ML TUBE PO PRN ×2 (09:45)
[2019-04-24] MEDS ORDERED: D5% in Water 1,000 ML IVC PRN (09:45)
[2019-04-24] MEDS ORDERED: *HR* Dextrose 50 % in Water (Syg) 50 ML SYRINGE IVP PRN (09:45)
[2019-04-24] MEDS: Insulin LISPRO 300 UNITS/3 ML VIAL SQ SCH ×2 (11:32→16:52)
[2019-04-24 14:09] LABS: Estimated Average Glucose 126 mg/dl
[2019-04-24] MEDS ORDERED: Ondansetron ODT 4 MG TAB.RAPDIS PO PRN (14:14)
[2019-04-24] MEDS: QUEtiapine Fumarate 25 MG TABLET PO SCH ×2 (16:09→21:14)
[2019-04-24] MEDS: Pantoprazole 40 MG VIAL IVP SCH (16:09)
[2019-04-24 17:06] LABS: Hematocrit 36.6 % (35.3-44.9)
[2019-04-24 20:52] LABS: Hematocrit 35.5 % (35.3-44.9); Hemoglobin 11.5 g/dL (11.5-15.4)
[2019-04-24] MEDS ORDERED: Insulin LISPRO 300 UNITS/3 ML VIAL SQ SCH (21:00)
[2019-04-25 05:09] LABS: Basophils # 0.1 K/mcL (0.0-0.2); Basophils % 0.8 %; Eosinophils # 0.3 K/mcL (0.0-0.6); Eosinophils % 4.2 %; Hematocrit 35.5 % (35.3-44.9); Hemoglobin 11.2 g/dL (11.5-15.4); Immature Granulocytes % 2.5 % (0-4); Lymphocytes # 1.5 K/mcL (0.6-4.6); Mean Corpuscular HGB Conc 31.5 g/dL (31.6-35.5); Mean Corpuscular Hemoglobin 31.1 pg (28.0-33.3); Mean Corpuscular Volume 98.6 fL (83.0-100.0); Mean Platelet Volume 10.1 fL (9.4-12.4); Monocytes % 12.2 %; Neutrophils # 4.8 K/mcL (1.6-8.9); Platelet Count 285 K/mcL (140-400); Segmented Neutrophils % 61.3 %; White Blood Count 7.9 K/mcL (4.3-11.1)
[2019-04-25 05:17] LABS: Calcium 9.1 mg/dL (8.6-10.3); Potassium 3.9 mEq/L (3.5-5.1)
[2019-04-25] MEDS: Insulin LISPRO 300 UNITS/3 ML VIAL SQ SCH ×2 (07:09→11:08)
[2019-04-25 08:26] VITALS: BP 192/80
[2019-04-25] MEDS ORDERED: Propofol 500 MG/50 ML INFUS..BTL ONE (08:41)
[2019-04-25] MEDS ORDERED: Lidocaine -MPF 2% 2 ML VIAL ONE (08:42)
[2019-04-25] MEDS ORDERED: Magnesium Oxide 400 MG TABLET PO SCH (09:00)
[2019-04-25] MEDS ORDERED: NON-FORMULARY MEDICATION 1 EACH EACH (Pantoprazole Sodium [Protonix] 40 MG) PO SCH (09:00)
[2019-04-25] MEDS ORDERED: amLODIPine 5 MG TABLET PO SCH (09:00)
[2019-04-25] MEDS: QUEtiapine Fumarate 25 MG TABLET PO SCH (11:07)
[2019-04-25] MEDS: Pantoprazole 40 MG VIAL IVP SCH (11:07)
== END 2019-04-25 13:36 | disposition home or self-care (01) ==
LOC: EMEROOARM 07:39 → CDU 07:39 → SUATTDRO 09:33 → CDU 10:00 → 3ANU 18:07
PROVIDERS: ADMIT Internal Medicine; ATTEND Family Medicine

== ENCOUNTER 2019-10-19 22:35 | Inpatient (IN) ==
[2019-10-19] MEDS ORDERED: Tdap (Boostrix) Vaccine 0.5 ML SYRINGE IM ONE (22:47)
[2019-10-19] MEDS ORDERED: Morphine Sulfate 2 MG/ML SYRINGE IVP ONE (22:47)
[2019-10-19 23:46] LABS: Basophils # 0.1 K/mcL (0.0-0.2); Basophils % 0.6 %; Eosinophils # 0.3 K/mcL (0.0-0.6); Eosinophils % 2.7 %; Hematocrit 32.6 % (35.3-44.9); Hemoglobin 10.7 g/dL (11.5-15.4); Immature Granulocytes % 1.6 % (0-4); Lymphocytes # 1.5 K/mcL (0.6-4.6); Lymphocytes % 11.3 %; Mean Corpuscular HGB Conc 32.8 g/dL (31.6-35.5); Mean Corpuscular Volume 94.5 fL (83.0-100.0); Mean Platelet Volume 9.4 fL (9.4-12.4); Monocytes # 0.9 K/mcL (0.0-1.3); Monocytes % 7.3 %; Neutrophils # 9.8 K/mcL (1.6-8.9); Platelet Count 333 K/mcL (140-400); Red Blood Count 3.45 M/mcL (3.82-4.97); Red Cell Distribution Width 13.5 % (11.5-14.5); Segmented Neutrophils % 76.5 %; White Blood Count 12.8 K/mcL (4.3-11.1)
[2019-10-20 00:05] LABS: BUN/Creatinine Ratio 11 (6-26); Blood Urea Nitrogen 10 mg/dL (8-23); Calcium 9.3 mg/dL (8.6-10.3); Carbon Dioxide 21 mEq/L (23-29); Chloride 96 mEq/L (98-107); Glucose 161 mg/dL (70-105); Osmolality,Calculated 267 (280-300); Potassium 4.4 mEq/L (3.5-5.1); Sodium 127 mEq/L (136-145); eGFR For African Americans > 60 (> 60); eGFR For Non-African Americans 57 (> 60)
[2019-10-20] MEDS ORDERED: Naloxone 0.4 MG/ML INJ IVP PRN (01:03)
[2019-10-20] MEDS ORDERED: *HR* Dextrose 50 % in Water (Vial) 50 ML VIAL IVP PRN (06:11)
[2019-10-20] MEDS ORDERED: Dextrose Gel 15 GM/37.5 ML TUBE PO PRN ×2 (06:11)
[2019-10-20] MEDS ORDERED: D5% in Water 1,000 ML IVC PRN (06:11)
[2019-10-20 06:32] LABS: Hematocrit 30.3 % (35.3-44.9); Hemoglobin 9.8 g/dL (11.5-15.4); Mean Corpuscular HGB Conc 32.3 g/dL (31.6-35.5); Mean Corpuscular Hemoglobin 31.3 pg (28.0-33.3); Mean Corpuscular Volume 96.8 fL (83.0-100.0); Mean Platelet Volume 9.8 fL (9.4-12.4); Platelet Count 324 K/mcL (140-400); Red Blood Count 3.13 M/mcL (3.82-4.97); Red Cell Distribution Width 13.4 % (11.5-14.5); White Blood Count 12.4 K/mcL (4.3-11.1)
[2019-10-20 06:33] LABS: Prothrombin Time 11.6 Seconds (9.4-12.1)
[2019-10-20 06:36] LABS: Activated Partial Thrombo Time 30.8 Seconds (26.0-36.0)
[2019-10-20 06:54] LABS: Alanine Aminotransferase 9 Units/L (7-52); Albumin/Globulin Ratio 1.9 (1.1-2.2); Alkaline Phosphatase 37 Units/L (34-104); Aspartate Amino Transferase 10 Units/L (13-39); BUN/Creatinine Ratio 13 (6-26); Bilirubin,Total 0.4 mg/dL (0.3-1.0); Blood Urea Nitrogen 12 mg/dL (8-23); Carbon Dioxide 20 mEq/L (23-29); Chloride 96 mEq/L (98-107); Globulin 2.1 g/dL (2.4-3.5); Glucose 177 mg/dL (70-105); Magnesium 1.4 mg/dL (1.6-2.6); Osmolality,Calculated 270 (280-300); Phosphorous 3.6 mg/dL (2.7-4.5); Potassium 5.1 mEq/L (3.5-5.1); Sodium 128 mEq/L (136-145); Total Protein 6.1 g/dL (6.4-8.9); eGFR For African Americans > 60 (> 60); eGFR For Non-African Americans 55 (> 60)
[2019-10-20] MEDS ORDERED: Acetaminophen 325 MG TABLET PO PRN (09:23)
[2019-10-20] MEDS ORDERED: Insulin LISPRO 300 UNITS/3 ML VIAL SQ SCH (12:00)
[2019-10-20 14:17] LABS: Bilirubin,Urine Negative (Negative); Blood,Urine Negative (Negative); Clarity,Urine Clear (Clear); Color,Urine Light-Yellow (Yellow); Glucose,Urine (UA) Normal (Normal); Ketones,Urine Negative (Negative); Leukocyte Esterase,Urine Negative (Negative); Nitrite,Urine Negative (Negative); Protein,Urine Negative (Neg-Trace); Specific Gravity,Urine 1.013 (1.010-1.025); Urobilinogen,Urine Normal (Normal)
[2019-10-20] MEDS: Insulin LISPRO 300 UNITS/3 ML VIAL SQ SCH ×3 (15:35→19:45)
[2019-10-20] MEDS ORDERED: *HR* LORazepam 0.5 MG TABLET PO PRN (17:43)
[2019-10-20] MEDS: Metoprolol XL (24 HR) Succ 50 MG TAB.ER.24H PO SCH (19:49)
[2019-10-20] MEDS: QUEtiapine Fumarate 25 MG TABLET PO SCH (19:50)
[2019-10-21 02:32] LABS: Basophils # 0.1 K/mcL (0.0-0.2); Basophils % 0.5 %; Eosinophils # 0.1 K/mcL (0.0-0.6); Eosinophils % 0.7 %; Hematocrit 27.4 % (35.3-44.9); Immature Granulocytes % 1.7 % (0-4); Lymphocytes # 1.7 K/mcL (0.6-4.6); Mean Corpuscular HGB Conc 32.8 g/dL (31.6-35.5); Mean Corpuscular Hemoglobin 31.6 pg (28.0-33.3); Mean Corpuscular Volume 96.1 fL (83.0-100.0); Mean Platelet Volume 9.6 fL (9.4-12.4); Monocytes # 1.2 K/mcL (0.0-1.3); Monocytes % 12.9 %; Neutrophils # 6.2 K/mcL (1.6-8.9); Platelet Count 311 K/mcL (140-400); Red Blood Count 2.85 M/mcL (3.82-4.97); Red Cell Distribution Width 13.6 % (11.5-14.5); Segmented Neutrophils % 66.2 %; White Blood Count 9.4 K/mcL (4.3-11.1)
[2019-10-21 03:49] LABS: Calcium 9.1 mg/dL (8.6-10.3); Magnesium 2.2 mg/dL (1.6-2.6); Potassium 4.9 mEq/L (3.5-5.1)
[2019-10-21] MEDS ORDERED: 0.9 % Sodium Chloride 1,000 ML IVC SCH (08:30)
[2019-10-21] MEDS: Cholestyramine 4 GM POWD.PACK PO SCH (09:31)
[2019-10-21] MEDS: Metoprolol XL (24 HR) Succ 50 MG TAB.ER.24H PO SCH ×2 (09:32→21:48)
[2019-10-21] MEDS: QUEtiapine Fumarate 25 MG TABLET PO SCH ×3 (09:32→21:48)
[2019-10-21] MEDS: Magnesium Oxide 400 MG TABLET PO SCH (09:32)
[2019-10-21] MEDS: Insulin LISPRO 300 UNITS/3 ML VIAL SQ SCH ×4 (09:33→20:53)
[2019-10-22 05:54] LABS: Basophils % 0.4 %; Eosinophils # 0.2 K/mcL (0.0-0.6); Eosinophils % 2.2 %; Hematocrit 23.5 % (35.3-44.9); Hemoglobin 7.6 g/dL (11.5-15.4); Immature Granulocytes % 2.2 % (0-4); Lymphocytes # 1.3 K/mcL (0.6-4.6); Lymphocytes % 13.3 %; Mean Corpuscular HGB Conc 32.3 g/dL (31.6-35.5); Mean Corpuscular Volume 95.9 fL (83.0-100.0); Monocytes # 1.3 K/mcL (0.0-1.3); Monocytes % 13.4 %; Neutrophils # 6.7 K/mcL (1.6-8.9); Platelet Count 262 K/mcL (140-400); Red Blood Count 2.45 M/mcL (3.82-4.97); Red Cell Distribution Width 13.6 % (11.5-14.5); Segmented Neutrophils % 68.5 %; White Blood Count 9.7 K/mcL (4.3-11.1)
[2019-10-22 06:14] LABS: Calcium 8.2 mg/dL (8.6-10.3); Magnesium 1.8 mg/dL (1.6-2.6); Potassium 4.5 mEq/L (3.5-5.1)
[2019-10-22] MEDS: Insulin LISPRO 300 UNITS/3 ML VIAL SQ SCH ×3 (08:29→18:36)
[2019-10-22] MEDS: Cholestyramine 4 GM POWD.PACK PO SCH (08:42)
[2019-10-22] MEDS: QUEtiapine Fumarate 25 MG TABLET PO SCH ×2 (08:43→12:23)
[2019-10-22] MEDS: Magnesium Oxide 400 MG TABLET PO SCH (08:43)
[2019-10-22] MEDS: Metoprolol XL (24 HR) Succ 50 MG TAB.ER.24H PO SCH (08:43)
[2019-10-22 08:51] LABS: Hematocrit 24.3 % (35.3-44.9); Hemoglobin 7.8 g/dL (11.5-15.4)
[2019-10-22] MEDS ORDERED: 0.9 % Sodium Chloride 250 ML IVC SCH (10:45)
[2019-10-22] MEDS ORDERED: Ethanol\\Acetic Acid\\Na Ace\\Ben 1,000 ML IRRIG.SOLN IR ONE (18:40)
[2019-10-22] MEDS ORDERED: Vancomycin 1,000 MG VIAL ONE (18:40)
[2019-10-22] MEDS ORDERED: Ondansetron 4 MG/2 ML VIAL ONE (18:41)
[2019-10-22] MEDS ORDERED: *HR* FentaNYL (PF) 100 MCG/2 ML VIAL ONE (18:41)
[2019-10-22] MEDS ORDERED: *HR* Rocuronium Bromide 50 MG/5 ML VIAL ONE (18:41)
[2019-10-22] MEDS ORDERED: Lidocaine -MPF 2% 2 ML VIAL ONE (18:41)
[2019-10-22] MEDS ORDERED: Dexamethasone 4 MG/ML VIAL ONE (18:41)
[2019-10-22] MEDS ORDERED: *HR* Propofol 200 MG/20 ML VIAL IVP ONE (18:41)
[2019-10-22] MEDS ORDERED: Lidocaine -MPF 4% 5 ML AMPUL ONE (18:41)
[2019-10-22] MEDS ORDERED: *HR* Succinylcholine 200 MG/10 ML VIAL IVP ONE (18:41)
[2019-10-22] MEDS ORDERED: Famotidine 20 MG/2 ML VIAL ONE (18:52)
[2019-10-22] MEDS ORDERED: Famotidine 20 MG/2 ML VIAL IVP ONE (19:38)
[2019-10-22] MEDS ORDERED: Acetaminophen IV 1,000 MG/100 ML INFUS..BTL IVPB ONE (19:38)
[2019-10-22] MEDS ORDERED: Clindamycin 900 MG/50 ML 900 MG/50 ML IV.SOLN IVPB ONE (19:46)
[2019-10-22] MEDS ORDERED: EPHEDrine 50 MG/ML VIAL ONE (20:37)
[2019-10-22] MEDS ORDERED: *HR* PHENYLEPHRINE 1,000 MCG/10 ML SYRINGE IVP ONE (21:13)
[2019-10-22 22:01] LABS: Hematocrit 24.8 % (35.3-44.9)
[2019-10-22] MEDS ORDERED: HYDROcodone BIT/Homatropine 5 MG TABLET PO PRN (22:23)
[2019-10-22] MEDS ORDERED: D5% in Water 1,000 ML IVC PRN (22:23)
[2019-10-22] MEDS ORDERED: Ringers Solution, Lactated 1,000 ML IVC SCH (22:23)
[2019-10-22] MEDS ORDERED: *HR* LORazepam 0.5 MG TABLET PO PRN (22:23)
[2019-10-22] MEDS ORDERED: *HR* OxyCODONE Immed Rel 5 MG TABLET PO PRN (22:23)
[2019-10-22] MEDS ORDERED: MOM Conc 10 ML UD.LIQ PO PRN (22:23)
[2019-10-22] MEDS ORDERED: *HR* Dextrose 50 % in Water (Vial) 50 ML VIAL IVP PRN (22:23)
[2019-10-22] MEDS ORDERED: Ondansetron 4 MG/2 ML VIAL IVP PRN (22:23)
[2019-10-22] MEDS ORDERED: Sennosides 8.6 MG TABLET PO PRN (22:23)
[2019-10-22] MEDS ORDERED: Dextrose Gel 15 GM/37.5 ML TUBE PO PRN ×2 (22:23)
[2019-10-22] MEDS ORDERED: *HR* Promethazine 25 MG/ML VIAL IVP PRN (22:23)
[2019-10-22] MEDS ORDERED: Naloxone 0.4 MG/ML INJ IVP PRN (22:23)
[2019-10-23] MEDS: Clindamycin 900 MG/50 ML 900 MG/50 ML IV.SOLN IVPB SCH ×2 (01:15→08:18)
[2019-10-23] MEDS ORDERED: HYDROcodone BIT/Homatropine 5 MG TABLET PO PRN (05:37)
[2019-10-23 06:16] LABS: Basophils # 0.1 K/mcL (0.0-0.2); Basophils % 0.5 %; Eosinophils % 0.1 %; Hematocrit 27.8 % (35.3-44.9); Hemoglobin 8.7 g/dL (11.5-15.4); Immature Granulocytes % 2.9 % (0-4); Lymphocytes # 1.4 K/mcL (0.6-4.6); Lymphocytes % 7.3 %; Mean Corpuscular HGB Conc 31.3 g/dL (31.6-35.5); Mean Corpuscular Hemoglobin 30.2 pg (28.0-33.3); Mean Corpuscular Volume 96.5 fL (83.0-100.0); Mean Platelet Volume 9.8 fL (9.4-12.4); Monocytes # 1.3 K/mcL (0.0-1.3); Monocytes % 6.8 %; Neutrophils # 15.8 K/mcL (1.6-8.9); Nucleated Red Blood Cells 0.1 /100 WBC (0); Platelet Count 340 K/mcL (140-400); Red Blood Count 2.88 M/mcL (3.82-4.97); Red Cell Distribution Width 14.6 % (11.5-14.5); Segmented Neutrophils % 82.4 %
[2019-10-23 06:24] LABS: White Blood Count 19.2 K/mcL (4.3-11.1)
[2019-10-23 06:31] LABS: Calcium 8.2 mg/dL (8.6-10.3); Potassium 5.1 mEq/L (3.5-5.1)
[2019-10-23] MEDS ORDERED: 0.9 % Sodium Chloride 250 ML IVC SCH (08:00)
[2019-10-23] MEDS: Insulin LISPRO 300 UNITS/3 ML VIAL SQ SCH ×4 (08:21→23:06)
[2019-10-23] MEDS: Magnesium Oxide 400 MG TABLET PO SCH (08:22)
[2019-10-23] MEDS: Ascorbic Acid 500 MG TABLET PO SCH ×2 (08:22→16:32)
[2019-10-23] MEDS: Multivit/Ca/Min/Fe/FA 1 TAB TABLET PO SCH (08:23)
[2019-10-23] MEDS: Metoprolol XL (24 HR) Succ 50 MG TAB.ER.24H PO SCH ×2 (08:23→18:26)
[2019-10-23] MEDS: QUEtiapine Fumarate 25 MG TABLET PO SCH ×4 (08:23→18:25)
[2019-10-23] MEDS ORDERED: Cholestyramine 4 GM POWD.PACK PO SCH (09:00)
[2019-10-23] MEDS: Cholestyramine 4 GM POWD.PACK PO SCH (11:34)
[2019-10-23] MEDS ORDERED: *HR* LORazepam 2 MG/ML VIAL IM ONE (13:39)
[2019-10-23 21:00] LABS: Hematocrit 25.4 % (35.3-44.9); Hemoglobin 8.3 g/dL (11.5-15.4)
[2019-10-23 22:21] LABS: Bacteria,Urine Few per hpf (None-Few); Bilirubin,Urine Negative (Negative); Blood,Urine Negative (Negative); Clarity,Urine Clear (Clear); Color,Urine Yellow (Yellow); Glucose,Urine (UA) Normal (Normal); Hyaline Casts,Urine Moderate per lpf (None Seen); Ketones,Urine Negative (Negative); Leukocyte Esterase,Urine Moderate (Negative); Mucus,Urine Few per lpf (None-Few); Nitrite,Urine Negative (Negative); PH,Urine 5.5 pH Units (5.0-8.0); Protein,Urine Trace mg/dL (Neg-Trace); RBC,Urine 0-3 per hpf (0-3); Squamous Epithelial Cell,Urine Few per hpf (None-Few); Urobilinogen,Urine Normal (Normal); WBC,Urine 15-30 per hpf (0-3)
[2019-10-24 04:28] LABS: ABG Base Excess -3 mEq/L (-2 to 3); ABG HCO3 22 mEq/L (21-27); ABG Oxygen Saturation 94 % (95-98); ABG PCO2 37 mmHg (35-45); ABG PH 7.38 pH Units (7.32-7.45); ABG PO2 70 mmHg (85-104); ABG TCO2 23 mEq/L (20-26)
[2019-10-24 04:36] LABS: Basophils # 0.1 K/mcL (0.0-0.2); Basophils % 0.5 %; Eosinophils # 0.2 K/mcL (0.0-0.6); Eosinophils % 1.7 %; Hematocrit 23.6 % (35.3-44.9); Hemoglobin 7.7 g/dL (11.5-15.4); Lymphocytes # 1.5 K/mcL (0.6-4.6); Lymphocytes % 13.4 %; Mean Corpuscular HGB Conc 32.6 g/dL (31.6-35.5); Mean Corpuscular Hemoglobin 31.7 pg (28.0-33.3); Mean Corpuscular Volume 97.1 fL (83.0-100.0); Mean Platelet Volume 10.2 fL (9.4-12.4); Monocytes # 1.2 K/mcL (0.0-1.3); Monocytes % 10.1 %; Neutrophils # 8.1 K/mcL (1.6-8.9); Nucleated Red Blood Cells 0.2 /100 WBC (0); Platelet Count 267 K/mcL (140-400); Red Blood Count 2.43 M/mcL (3.82-4.97); Red Cell Distribution Width 14.3 % (11.5-14.5); Segmented Neutrophils % 70.3 %; White Blood Count 11.5 K/mcL (4.3-11.1)
[2019-10-24 04:51] LABS: Calcium 8.1 mg/dL (8.6-10.3); Magnesium 2.3 mg/dL (1.6-2.6); Potassium 4.3 mEq/L (3.5-5.1)
[2019-10-24] MEDS: Levalbuterol Neb 1.25 MG/3 ML IH SCH ×4 (05:21→20:33)
[2019-10-24] MEDS: Calcium Gluconate 1gm/50mL 1 GM/50 ML BAG IVPB SCH ×2 (05:56→07:08)
[2019-10-24] MEDS: Insulin LISPRO 300 UNITS/3 ML VIAL SQ SCH ×4 (07:59→21:19)
[2019-10-24] MEDS: Magnesium Oxide 400 MG TABLET PO SCH (08:20)
[2019-10-24] MEDS: Multivit/Ca/Min/Fe/FA 1 TAB TABLET PO SCH (08:20)
[2019-10-24] MEDS: Metoprolol XL (24 HR) Succ 50 MG TAB.ER.24H PO SCH ×2 (08:20→21:19)
[2019-10-24] MEDS: Ascorbic Acid 500 MG TABLET PO SCH ×2 (08:20→16:26)
[2019-10-24] MEDS: QUEtiapine Fumarate 25 MG TABLET PO SCH ×3 (08:21→21:19)
[2019-10-24 09:13] LABS: Hematocrit 24.8 % (35.3-44.9)
[2019-10-24] MEDS: Cholestyramine 4 GM POWD.PACK PO SCH (11:18)
[2019-10-24] MEDS ORDERED: 0.9 % Sodium Chloride 500 ML IVC ONE (11:39)
[2019-10-24] MEDS ORDERED: 0.9 % Sodium Chloride 500 ML ONE (11:41)
[2019-10-24] MEDS ORDERED: 0.9 % Sodium Chloride 1,000 ML IVC SCH (12:51)
[2019-10-24 13:44] LABS: Hematocrit 23.3 % (35.3-44.9); Hemoglobin 7.5 g/dL (11.5-15.4)
[2019-10-24 16:01] LABS: Hematocrit 23.8 % (35.3-44.9); Hemoglobin 7.7 g/dL (11.5-15.4)
[2019-10-24 22:46] LABS: Hematocrit 23.5 % (35.3-44.9); Hemoglobin 7.7 g/dL (11.5-15.4)
[2019-10-25] MEDS: Levalbuterol Neb 1.25 MG/3 ML IH SCH ×2 (03:09→10:43)
[2019-10-25 03:44] LABS: Hematocrit 23.2 % (35.3-44.9); Hemoglobin 7.7 g/dL (11.5-15.4); Mean Corpuscular HGB Conc 33.2 g/dL (31.6-35.5); Mean Corpuscular Hemoglobin 32.2 pg (28.0-33.3); Mean Corpuscular Volume 97.1 fL (83.0-100.0); Mean Platelet Volume 10.1 fL (9.4-12.4); Nucleated Red Blood Cells 0.2 /100 WBC (0); Platelet Count 294 K/mcL (140-400); Red Blood Count 2.39 M/mcL (3.82-4.97); Red Cell Distribution Width 14.3 % (11.5-14.5); White Blood Count 11.7 K/mcL (4.3-11.1)
[2019-10-25 04:06] LABS: BUN/Creatinine Ratio 21 (6-26); Blood Urea Nitrogen 21 mg/dL (8-23); Calcium 8.4 mg/dL (8.6-10.3); Carbon Dioxide 21 mEq/L (23-29); Chloride 99 mEq/L (98-107); Glucose 139 mg/dL (70-105); Osmolality,Calculated 273 (280-300); Potassium 4.2 mEq/L (3.5-5.1); Sodium 129 mEq/L (136-145); eGFR For African Americans > 60 (> 60); eGFR For Non-African Americans 51 (> 60)
[2019-10-25 04:20] LABS: Eosinophils # 1.4 K/mcL (0.0-0.6); Lymphocytes # 2.1 K/mcL (0.6-4.6); Monocytes # 1.6 K/mcL (0.0-1.3); Neutrophils # 6.1 K/mcL (1.6-8.9); Platelet Estimate Normal (Normal)
[2019-10-25] MEDS: Multivit/Ca/Min/Fe/FA 1 TAB TABLET PO SCH (07:59)
[2019-10-25] MEDS: Magnesium Oxide 400 MG TABLET PO SCH (07:59)
[2019-10-25] MEDS: QUEtiapine Fumarate 25 MG TABLET PO SCH ×2 (08:00→12:23)
[2019-10-25] MEDS: Metoprolol XL (24 HR) Succ 50 MG TAB.ER.24H PO SCH (08:00)
[2019-10-25] MEDS: Ascorbic Acid 500 MG TABLET PO SCH (08:00)
[2019-10-25] MEDS: Insulin LISPRO 300 UNITS/3 ML VIAL SQ SCH ×2 (08:01→12:24)
[2019-10-25 08:03] LABS: Hematocrit 24.2 % (35.3-44.9); Hemoglobin 7.9 g/dL (11.5-15.4)
[2019-10-25 10:41] VITALS: BP 172/71
[2019-10-25] MEDS: Cholestyramine 4 GM POWD.PACK PO SCH (12:23)
[2019-10-26] MEDS ORDERED: *HR* Enoxaparin 40 MG/0.4 ML SYRINGE SQ SCH (06:00)
== END 2019-10-25 15:13 | DRG 470 ==
LOC: 3NENU 22:35 → EMEROOARM 22:35 → 3NENU 10-20 01:36 → SUATTDRO 10-20 17:32
PROVIDERS: ADMIT Internal Medicine; ATTEND Family Medicine

== ENCOUNTER 2019-11-02 23:38 | Inpatient (IN) ==
[2019-11-02] MEDS ORDERED: 0.9 % Sodium Chloride 1,000 ML IVC ONE (23:48)
[2019-11-03 00:01] LABS: Mean Platelet Volume 10.3 fL (9.4-12.4); Nucleated Red Blood Cells 0.1 /100 WBC (0)
[2019-11-03 00:03] LABS: Hematocrit 28.5 % (35.3-44.9); Mean Corpuscular HGB Conc 31.6 g/dL (31.6-35.5); Mean Corpuscular Hemoglobin 31.8 pg (28.0-33.3); Mean Corpuscular Volume 100.7 fL (83.0-100.0); Platelet Count 636 K/mcL (140-400); Red Blood Count 2.83 M/mcL (3.82-4.97); White Blood Count 27.3 K/mcL (4.3-11.1)
[2019-11-03] MEDS ORDERED: 0.9 % Sodium Chloride 1,000 ML ONE (00:04)
[2019-11-03 00:08] LABS: INR 1.2; Prothrombin Time 13.8 Seconds (9.4-12.1)
[2019-11-03 00:10] LABS: Activated Partial Thrombo Time 31.4 Seconds (26.0-36.0)
[2019-11-03] MEDS ORDERED: Calcium Gluconate 1gm/50mL 1 GM/50 ML BAG IVPB PRN (00:15)
[2019-11-03] MEDS ORDERED: levoFLOXacin 750 MG/150 ML 750 MG/150 ML BAG IVPB ONE (00:22)
[2019-11-03] MEDS ORDERED: 0.9 % Sodium Chloride 1,000 ML IVC ONE (00:27)
[2019-11-03] MEDS ORDERED: 0.9 % Sodium Chloride 250 ML IVC ONE ×2 (00:27→04:46)
[2019-11-03 00:39] LABS: Albumin 3.6 g/dL (3.5-5.7); Albumin/Globulin Ratio 1.3 (1.1-2.2); Bilirubin,Direct 0.2 mg/dL (0.0-0.2); Bilirubin,Indirect 0.5 mg/dL (0.0-1.0); Bilirubin,Total 0.7 mg/dL (0.3-1.0); Calcium 9.6 mg/dL (8.6-10.3); Globulin 2.7 g/dL (2.4-3.5); Potassium 6.8 mEq/L (3.5-5.1); Thyroid Stimulating Hormone 5.973 mcIU/mL (0.340-5.600); Total Protein 6.3 g/dL (6.4-8.9); Troponin I 0.23 ng/mL (< 0.04)
[2019-11-03 00:42] LABS: Eosinophils # 0.3 K/mcL (0.0-0.6); Large Platelets Present (Not Present); Lymphocytes # 3.8 K/mcL (0.6-4.6); Monocytes # 0.8 K/mcL (0.0-1.3); Platelet Estimate Marked Increase (Normal)
[2019-11-03 00:43] LABS: Anisocytosis 1+ (Not Present); Polychromasia 1+ (Not Present)
[2019-11-03] MEDS ORDERED: Aztreonam 2,000 MG in 0.9 % Sodium Chloride Mini Bag 100 ML IVPB ONE (00:45)
[2019-11-03 00:46] LABS: Bacteria,Urine Few per hpf (None-Few); Bilirubin,Urine Negative (Negative); Blood,Urine Small (Negative); Clarity,Urine Ex.Turbid (Clear); Color,Urine Yellow (Yellow); Glucose,Urine (UA) Normal (Normal); Hyaline Casts,Urine Few per lpf (None Seen); Ketones,Urine Trace mg/dL (Negative); Leukocyte Esterase,Urine Large (Negative); Mucus,Urine Few per lpf (None-Few); Nitrite,Urine Negative (Negative); PH,Urine 5.5 pH Units (5.0-8.0); Protein,Urine 30 mg/dL (Neg-Trace); RBC,Urine 15-30 per hpf (0-3); Squamous Epithelial Cell,Urine Many per hpf (None-Few); WBC,Urine TNTC per hpf (0-3)
[2019-11-03 00:48] LABS: Transitional Epi Cells,Urine Few per hpf (None-Few)
[2019-11-03] MEDS ORDERED: Insulin Human Regular 10 UNIT in 0.9 % Sodium Chloride 10 ML IV ONE (01:13)
[2019-11-03] MEDS ORDERED: *HR* Dextrose 50 % in Water (Vial) 50 ML VIAL IVP ONE ×2 (01:14→09:45)
[2019-11-03 01:21] LABS: Adenovirus Not Detected (Not Detect); Bordetella Pertussis Not Detected (Not Detect); Chlamydophila pneumoniae Not Detected (Not Detect); Coronavirus 229E Not Detected (Not Detect); Coronavirus HKU1 Not Detected (Not Detect); Coronavirus NL63 Not Detected (Not Detect); Coronavirus OC43 Not Detected (Not Detect); Human Metapneumovirus Not Detected (Not Detect); Human Rhinovirus/Enterovirus Not Detected (Not Detect); Influenza A Subtype 2009 H1 Not Detected (Not Detect); Influenza B Not Detected (Not Detect); Mycoplasma pneumoniae Not Detected (Not Detect); Parainfluenza Virus 1 Not Detected (Not Detect); Parainfluenza Virus 2 Not Detected (Not Detect); Parainfluenza Virus 3 Not Detected (Not Detect); Parainfluenza Virus 4 Not Detected (Not Detect); Respiratory Syncytial Virus Not Detected (Not Detect)
[2019-11-03] MEDS: 0.9 % Sodium Chloride 1,000 ML IVC SCH ×2 (02:41→17:28)
[2019-11-03] MEDS ORDERED: Naloxone 0.4 MG/ML INJ IVP PRN (04:57)
[2019-11-03] MEDS ORDERED: D5% in Water 1,000 ML IVC PRN (07:15)
[2019-11-03] MEDS ORDERED: Dextrose Gel 15 GM/37.5 ML TUBE PO PRN ×2 (07:15)
[2019-11-03] MEDS ORDERED: *HR* Dextrose 50 % in Water (Vial) 50 ML VIAL IVP PRN (07:15)
[2019-11-03 07:57] LABS: INR 1.3; Prothrombin Time 14.2 Seconds (9.4-12.1)
[2019-11-03 08:26] LABS: Hematocrit 27.4 % (35.3-44.9); Mean Corpuscular Hemoglobin 30.5 pg (28.0-33.3); Nucleated Red Blood Cells 0.1 /100 WBC (0); Red Cell Distribution Width 15.1 % (11.5-14.5)
[2019-11-03 08:28] LABS: Hemoglobin 8.2 g/dL (11.5-15.4); Mean Corpuscular HGB Conc 29.9 g/dL (31.6-35.5); Mean Corpuscular Volume 101.9 fL (83.0-100.0); Mean Platelet Volume 10.2 fL (9.4-12.4); Platelet Count 586 K/mcL (140-400); Red Blood Count 2.69 M/mcL (3.82-4.97); White Blood Count 25.1 K/mcL (4.3-11.1)
[2019-11-03 08:37] LABS: Albumin 3.4 g/dL (3.5-5.7); Albumin/Globulin Ratio 1.4 (1.1-2.2); Bilirubin,Total 0.6 mg/dL (0.3-1.0); Calcium 8.9 mg/dL (8.6-10.3); Globulin 2.4 g/dL (2.4-3.5); Potassium 5.3 mEq/L (3.5-5.1); Total Protein 5.8 g/dL (6.4-8.9); Troponin I 0.22 ng/mL (< 0.04)
[2019-11-03 09:00] LABS: Platelet Estimate Increased (Normal)
[2019-11-03] MEDS ORDERED: levoFLOXacin 750 MG/150 ML 750 MG/150 ML BAG IVPB SCH (09:00)
[2019-11-03 09:01] LABS: Anisocytosis 1+ (Not Present)
[2019-11-03 09:07] LABS: Neutrophils # 20.6 K/mcL (1.6-8.9)
[2019-11-03 09:08] LABS: Eosinophils # 0.5 K/mcL (0.0-0.6); Lymphocytes # 2.5 K/mcL (0.6-4.6)
[2019-11-03] MEDS ORDERED: Albuterol 2.5 MG/3 ML NEBULIZER IH ONE (09:45)
[2019-11-03] MEDS ORDERED: Insulin LISPRO 300 UNITS/3 ML VIAL SQ ONE (09:47)
[2019-11-03 11:01] LABS: Calcium 8.4 mg/dL (8.6-10.3); Potassium 5.3 mEq/L (3.5-5.1)
[2019-11-03] MEDS: Insulin LISPRO 300 UNITS/3 ML VIAL SQ SCH ×2 (12:07→17:29)
[2019-11-03] MEDS: *HR* Heparin 5,000 UNIT/ML VIAL SQ SCH (17:25)
[2019-11-04] MEDS: Insulin LISPRO 300 UNITS/3 ML VIAL SQ SCH ×5 (00:32→23:13)
[2019-11-04] MEDS: *HR* Heparin 5,000 UNIT/ML VIAL SQ SCH ×2 (05:15→17:38)
[2019-11-04] MEDS: 0.9 % Sodium Chloride 1,000 ML IVC SCH (05:16)
[2019-11-04] MEDS ORDERED: *HR* LORazepam 0.5 MG TABLET PO PRN (07:30)
[2019-11-04] MEDS: Magnesium Oxide 400 MG TABLET PO SCH (08:14)
[2019-11-04] MEDS: QUEtiapine Fumarate 25 MG TABLET PO SCH ×4 (08:14→20:37)
[2019-11-04] MEDS ORDERED: Metoprolol XL (24 HR) Succ 50 MG TAB.ER.24H PO SCH (09:00)
[2019-11-04 11:58] LABS: Hemoglobin 8.2 g/dL (11.5-15.4); Mean Corpuscular HGB Conc 29.3 g/dL (31.6-35.5); Mean Corpuscular Hemoglobin 29.8 pg (28.0-33.3); Mean Corpuscular Volume 101.8 fL (83.0-100.0); Mean Platelet Volume 10.1 fL (9.4-12.4); Monocytes # 0.9 K/mcL (0.0-1.3); Nucleated Red Blood Cells 0.1 /100 WBC (0); Platelet Count 483 K/mcL (140-400); Red Blood Count 2.75 M/mcL (3.82-4.97); Red Cell Distribution Width 15.6 % (11.5-14.5); White Blood Count 15.4 K/mcL (4.3-11.1)
[2019-11-04 12:12] LABS: Calcium 8.8 mg/dL (8.6-10.3); Magnesium 1.8 mg/dL (1.6-2.6); Potassium 4.2 mEq/L (3.5-5.1)
[2019-11-04 12:48] LABS: Anisocytosis 1+ (Not Present); Eosinophils # 0.3 K/mcL (0.0-0.6); Lymphocytes # 2.2 K/mcL (0.6-4.6); Neutrophils # 11.7 K/mcL (1.6-8.9); Platelet Estimate Increased (Normal)
[2019-11-04 12:49] LABS: Polychromasia 1+ (Not Present)
[2019-11-04] MEDS: Metoprolol XL (24 HR) Succ 50 MG TAB.ER.24H PO SCH (20:38)
[2019-11-05 05:37] LABS: Eosinophils # 0.3 K/mcL (0.0-0.6); Hematocrit 26.5 % (35.3-44.9); Mean Corpuscular HGB Conc 30.2 g/dL (31.6-35.5); Mean Corpuscular Hemoglobin 30.1 pg (28.0-33.3); Mean Corpuscular Volume 99.6 fL (83.0-100.0); Mean Platelet Volume 10.8 fL (9.4-12.4); Platelet Count 352 K/mcL (140-400); Red Blood Count 2.66 M/mcL (3.82-4.97); Red Cell Distribution Width 15.6 % (11.5-14.5); White Blood Count 13.2 K/mcL (4.3-11.1)
[2019-11-05 05:51] LABS: BUN/Creatinine Ratio 24 (6-26); Blood Urea Nitrogen 24 mg/dL (8-23); Carbon Dioxide 15 mEq/L (23-29); Chloride 110 mEq/L (98-107); Glucose 110 mg/dL (70-105); Magnesium 1.6 mg/dL (1.6-2.6); Osmolality,Calculated 285 (280-300); Phosphorous 2.3 mg/dL (2.7-4.5); Potassium 4.5 mEq/L (3.5-5.1); Sodium 135 mEq/L (136-145); eGFR For African Americans > 60 (> 60); eGFR For Non-African Americans 53 (> 60)
[2019-11-05] MEDS: Insulin LISPRO 300 UNITS/3 ML VIAL SQ SCH ×4 (06:04→20:30)
[2019-11-05] MEDS: *HR* Heparin 5,000 UNIT/ML VIAL SQ SCH ×2 (06:05→17:08)
[2019-11-05 06:06] LABS: Lymphocytes # 2.1 K/mcL (0.6-4.6); Monocytes # 0.8 K/mcL (0.0-1.3); Platelet Estimate Normal (Normal)
[2019-11-05] MEDS: Magnesium Oxide 400 MG TABLET PO SCH (08:15)
[2019-11-05] MEDS: QUEtiapine Fumarate 25 MG TABLET PO SCH ×3 (08:16→20:30)
[2019-11-05] MEDS: Metoprolol XL (24 HR) Succ 50 MG TAB.ER.24H PO SCH ×2 (08:16→20:30)
[2019-11-05] MEDS ORDERED: levoFLOXacin 750 MG/150 ML 750 MG/150 ML BAG IVPB SCH (09:00)
[2019-11-05] MEDS: levoFLOXacin 750 MG/150 ML 750 MG/150 ML BAG IVPB SCH (10:32)
[2019-11-05] MEDS ORDERED: Acetaminophen 325 MG TABLET PO PRN (20:25)
[2019-11-05] MEDS ORDERED: *HR* Promethazine 25 MG/ML VIAL IVP ONE (22:50)
[2019-11-06 05:28] LABS: Hematocrit 27.6 % (35.3-44.9); Hemoglobin 8.4 g/dL (11.5-15.4); Mean Corpuscular HGB Conc 30.4 g/dL (31.6-35.5); Mean Corpuscular Hemoglobin 30.2 pg (28.0-33.3); Mean Corpuscular Volume 99.3 fL (83.0-100.0); Mean Platelet Volume 10.3 fL (9.4-12.4); Platelet Count 443 K/mcL (140-400); Red Blood Count 2.78 M/mcL (3.82-4.97); Red Cell Distribution Width 15.5 % (11.5-14.5)
[2019-11-06 05:51] LABS: BUN/Creatinine Ratio 22 (6-26); Blood Urea Nitrogen 21 mg/dL (8-23); Calcium 8.9 mg/dL (8.6-10.3); Carbon Dioxide 18 mEq/L (23-29); Chloride 107 mEq/L (98-107); Glucose 120 mg/dL (70-105); Magnesium 1.5 mg/dL (1.6-2.6); Osmolality,Calculated 290 (280-300); Phosphorous 3.4 mg/dL (2.7-4.5); Potassium 3.8 mEq/L (3.5-5.1); Sodium 138 mEq/L (136-145); eGFR For African Americans > 60 (> 60); eGFR For Non-African Americans 56 (> 60)
[2019-11-06 05:56] LABS: Anisocytosis 1+ (Not Present); Lymphocytes # 1.6 K/mcL (0.6-4.6); Monocytes # 0.2 K/mcL (0.0-1.3); Neutrophils # 8.2 K/mcL (1.6-8.9); Polychromasia 1+ (Not Present)
[2019-11-06] MEDS: *HR* Heparin 5,000 UNIT/ML VIAL SQ SCH ×2 (06:31→17:52)
[2019-11-06] MEDS ORDERED: Magnesium Sulfate 1 GM/102 ML PIGGYBACK IVPB ONE (07:24)
[2019-11-06] MEDS: Insulin LISPRO 300 UNITS/3 ML VIAL SQ SCH ×4 (08:02→20:29)
[2019-11-06] MEDS: Magnesium Oxide 400 MG TABLET PO SCH (08:08)
[2019-11-06] MEDS: QUEtiapine Fumarate 25 MG TABLET PO SCH ×3 (08:08→20:08)
[2019-11-06] MEDS: Metoprolol XL (24 HR) Succ 50 MG TAB.ER.24H PO SCH ×2 (08:08→20:08)
[2019-11-06] MEDS ORDERED: Isovue-370 500 ML BOTTLE PO ONE (15:15)
[2019-11-06] MEDS ORDERED: *HR* Metoprolol 5 MG/5 ML VIAL IVP PRN (17:55)
[2019-11-06] MEDS ORDERED: Chloraseptic Spray 177 ML BOTTLE MM PRN (22:25)
[2019-11-07] MEDS: *HR* Heparin 5,000 UNIT/ML VIAL SQ SCH ×2 (05:46→17:58)
[2019-11-07] MEDS: Magnesium Oxide 400 MG TABLET PO SCH (07:44)
[2019-11-07] MEDS: Insulin LISPRO 300 UNITS/3 ML VIAL SQ SCH ×4 (07:44→22:19)
[2019-11-07] MEDS: Metoprolol XL (24 HR) Succ 50 MG TAB.ER.24H PO SCH ×2 (07:45→20:02)
[2019-11-07] MEDS: QUEtiapine Fumarate 25 MG TABLET PO SCH ×3 (07:45→20:02)
[2019-11-07] MEDS: levoFLOXacin 750 MG/150 ML 750 MG/150 ML BAG IVPB SCH (09:02)
[2019-11-07] MEDS: amLODIPine 5 MG TABLET PO SCH (20:02)
[2019-11-07] MEDS ORDERED: Ondansetron 4 MG/2 ML VIAL IVP ONE (22:52)
[2019-11-08 06:29] LABS: Hematocrit 28.8 % (35.3-44.9); Mean Corpuscular HGB Conc 31.3 g/dL (31.6-35.5); Mean Corpuscular Hemoglobin 31.1 pg (28.0-33.3); Mean Corpuscular Volume 99.7 fL (83.0-100.0); Mean Platelet Volume 10.7 fL (9.4-12.4); Platelet Count 397 K/mcL (140-400); Red Blood Count 2.89 M/mcL (3.82-4.97); Red Cell Distribution Width 15.9 % (11.5-14.5); White Blood Count 8.2 K/mcL (4.3-11.1)
[2019-11-08] MEDS: *HR* Heparin 5,000 UNIT/ML VIAL SQ SCH ×2 (06:38→20:19)
[2019-11-08 06:51] LABS: BUN/Creatinine Ratio 22 (6-26); Blood Urea Nitrogen 20 mg/dL (8-23); Calcium 9.2 mg/dL (8.6-10.3); Carbon Dioxide 20 mEq/L (23-29); Chloride 103 mEq/L (98-107); Glucose 119 mg/dL (70-105); Osmolality,Calculated 292 (280-300); Potassium 3.2 mEq/L (3.5-5.1); Sodium 139 mEq/L (136-145); eGFR For African Americans > 60 (> 60); eGFR For Non-African Americans 59 (> 60)
[2019-11-08] MEDS: Metoprolol XL (24 HR) Succ 50 MG TAB.ER.24H PO SCH ×2 (07:43→20:32)
[2019-11-08] MEDS: QUEtiapine Fumarate 25 MG TABLET PO SCH ×3 (07:43→20:32)
[2019-11-08] MEDS: Magnesium Oxide 400 MG TABLET PO SCH ×2 (07:43→20:02)
[2019-11-08] MEDS ORDERED: Potassium Chloride 40 MEQ, Lidocaine 1% 2 ML in 0.9 % Sodium Chloride 500 ML IVPB ONE (07:59)
[2019-11-08] MEDS: Ondansetron 4 MG/2 ML VIAL IVP PRN ×2 (08:52→14:58)
[2019-11-08] MEDS: Insulin LISPRO 300 UNITS/3 ML VIAL SQ SCH ×4 (14:39→20:51)
[2019-11-08] MEDS: amLODIPine 5 MG TABLET PO SCH (20:32)
[2019-11-08] MEDS ORDERED: *HR* LORazepam 2 MG/ML VIAL IVP ONE (20:37)
[2019-11-08] MEDS: 0.9 % Sodium Chloride 1,000 ML IVC SCH (22:18)
[2019-11-09 03:06] LABS: Hematocrit 28.2 % (35.3-44.9); Hemoglobin 8.6 g/dL (11.5-15.4); Mean Corpuscular HGB Conc 30.5 g/dL (31.6-35.5); Mean Corpuscular Hemoglobin 30.6 pg (28.0-33.3); Mean Corpuscular Volume 100.4 fL (83.0-100.0); Mean Platelet Volume 10.2 fL (9.4-12.4); Platelet Count 450 K/mcL (140-400); Red Blood Count 2.81 M/mcL (3.82-4.97); Red Cell Distribution Width 15.9 % (11.5-14.5); White Blood Count 9.1 K/mcL (4.3-11.1)
[2019-11-09 03:36] LABS: BUN/Creatinine Ratio 23 (6-26); Blood Urea Nitrogen 18 mg/dL (8-23); Calcium 8.6 mg/dL (8.6-10.3); Carbon Dioxide 22 mEq/L (23-29); Chloride 108 mEq/L (98-107); Glucose 105 mg/dL (70-105); Osmolality,Calculated 292 (280-300); Potassium 3.3 mEq/L (3.5-5.1); Sodium 140 mEq/L (136-145); eGFR For African Americans > 60 (> 60); eGFR For Non-African Americans > 60 (> 60)
[2019-11-09] MEDS: *HR* Heparin 5,000 UNIT/ML VIAL SQ SCH (07:00)
[2019-11-09] MEDS: Insulin LISPRO 300 UNITS/3 ML VIAL SQ SCH ×3 (08:08→17:08)
[2019-11-09] MEDS: Metoprolol XL (24 HR) Succ 50 MG TAB.ER.24H PO SCH (08:21)
[2019-11-09] MEDS: QUEtiapine Fumarate 25 MG TABLET PO SCH ×2 (08:21→13:24)
[2019-11-09] MEDS: 0.9 % Sodium Chloride 1,000 ML IVC SCH (08:22)
[2019-11-09] MEDS: Magnesium Oxide 400 MG TABLET PO SCH (08:22)
[2019-11-09 17:07] VITALS: BP 151/95
== END 2019-11-09 18:15 | DRG 871 ==
LOC: 2NNU 23:38 → EMEROOARM 23:38 → SUATTDRO 11-03 05:10 → 2NNU 11-03 05:28 → 3NENU 11-05 11:18
PROVIDERS: ADMIT Family Medicine; ATTEND Family Medicine

== ENCOUNTER 2019-11-30 09:49 | Inpatient (IN) ==
[2019-11-30] MEDS ORDERED: 0.9 % Sodium Chloride 1,000 ML IVC ONE (10:08)
[2019-11-30 10:26] LABS: Hematocrit 29.8 % (35.3-44.9); Hemoglobin 9.8 g/dL (11.5-15.4); Mean Corpuscular HGB Conc 32.9 g/dL (31.6-35.5); Mean Corpuscular Hemoglobin 31.5 pg (28.0-33.3); Mean Corpuscular Volume 95.8 fL (83.0-100.0); Mean Platelet Volume 11.7 fL (9.4-12.4); Platelet Count 348 K/mcL (140-400); Red Blood Count 3.11 M/mcL (3.82-4.97); Red Cell Distribution Width 16.7 % (11.5-14.5); White Blood Count 15.9 K/mcL (4.3-11.1)
[2019-11-30 10:47] LABS: Calcium 9.3 mg/dL (8.6-10.3); Potassium 4.1 mEq/L (3.5-5.1)
[2019-11-30] MEDS: DilTIAZem 50 MG/50 ML IV.SOLN IVC SCH ×2 (10:47→18:04)
[2019-11-30 10:50] LABS: Bilirubin,Urine Negative (Negative); Blood,Urine Large (Negative); Budding Yeast,Urine Many per hpf (None Seen); Clarity,Urine Ex.Turbid (Clear); Color,Urine Yellow (Yellow); Glucose,Urine (UA) Normal (Normal); Hyaline Casts,Urine Moderate per lpf (None Seen); Ketones,Urine Negative (Negative); Leukocyte Esterase,Urine Large (Negative); Mucus,Urine Few per lpf (None-Few); Nitrite,Urine Positive (Negative); Protein,Urine 100 mg/dL (Neg-Trace); RBC,Urine TNTC per hpf (0-3); Renal Epithelial Cells,Urine Moderate per hpf (None-Few); Specific Gravity,Urine 1.022 (1.010-1.025); Transitional Epi Cells,Urine Many per hpf (None-Few); Uric Acid Crystals,Urine Present; Urobilinogen,Urine Normal (Normal); WBC,Urine TNTC per hpf (0-3)
[2019-11-30 10:52] LABS: Troponin I 1.44 ng/mL (< 0.04)
[2019-11-30 11:01] LABS: Lymphocytes # 3.5 K/mcL (0.6-4.6); Monocytes # 0.8 K/mcL (0.0-1.3); Neutrophils # 11.1 K/mcL (1.6-8.9)
[2019-11-30 11:02] LABS: Platelet Estimate Normal (Normal)
[2019-11-30] MEDS ORDERED: cefTRIAXone 1,000 MG in Water for inj. (sterile) 10 ML IVP ONE (11:09)
[2019-11-30] MEDS ORDERED: Fluconazole 200 MG/100 ML 100 MG/50 ML BAG IVPB ONE (11:10)
[2019-11-30 12:20] LABS: SARS-CoV-2 DETECTED (Not Detect)
[2019-11-30 12:21] LABS: Adenovirus Not Detected (Not Detect); Bordetella Pertussis Not Detected (Not Detect); Chlamydophila pneumoniae Not Detected (Not Detect); Coronavirus 229E Not Detected (Not Detect); Coronavirus HKU1 Not Detected (Not Detect); Coronavirus NL63 Not Detected (Not Detect); Coronavirus OC43 Not Detected (Not Detect); Human Metapneumovirus Not Detected (Not Detect); Human Rhinovirus/Enterovirus Not Detected (Not Detect); Influenza A Subtype 2009 H1 Not Detected (Not Detect); Influenza B Not Detected (Not Detect); Mycoplasma pneumoniae Not Detected (Not Detect); Parainfluenza Virus 1 Not Detected (Not Detect); Parainfluenza Virus 2 Not Detected (Not Detect); Parainfluenza Virus 3 Not Detected (Not Detect); Parainfluenza Virus 4 Not Detected (Not Detect); Respiratory Syncytial Virus Not Detected (Not Detect)
[2019-11-30] MEDS ORDERED: Naloxone 0.4 MG/ML INJ IVP PRN (13:01)
[2019-11-30] MEDS ORDERED: *HR* Heparin 5,000 UNIT/ML VIAL IVP PRN ×2 (13:04)
[2019-11-30] MEDS ORDERED: *HR* Heparin 5,000 UNIT/ML VIAL IVP ONE (13:04)
[2019-11-30] MEDS ORDERED: D5% in Water 1,000 ML IVC PRN (13:06)
[2019-11-30] MEDS ORDERED: Dextrose Gel 15 GM/37.5 ML TUBE PO PRN ×2 (13:06)
[2019-11-30] MEDS ORDERED: *HR* Dextrose 50 % in Water (Vial) 50 ML VIAL IVP PRN (13:06)
[2019-11-30] MEDS ORDERED: Heparin 25,000UNIT/250ML 1/2NS 25,000 UNIT/250 ML IV.SOLN IVC SCH (13:15)
[2019-11-30] MEDS ORDERED: levoFLOXacin 750 MG/150 ML 750 MG/150 ML BAG IVPB ONE (14:00)
[2019-11-30] MEDS: Dexamethasone 4 MG/ML VIAL IVP SCH (14:31)
[2019-11-30] MEDS: 0.9 % Sodium Chloride 1,000 ML IVC SCH ×2 (14:31→17:30)
[2019-11-30 15:08] LABS: Hematocrit 28.5 % (35.3-44.9); Hemoglobin 9.1 g/dL (11.5-15.4); Mean Corpuscular HGB Conc 31.9 g/dL (31.6-35.5); Mean Corpuscular Hemoglobin 30.4 pg (28.0-33.3); Mean Corpuscular Volume 95.3 fL (83.0-100.0); Mean Platelet Volume 11.8 fL (9.4-12.4); Platelet Count 312 K/mcL (140-400); Red Blood Count 2.99 M/mcL (3.82-4.97); Red Cell Distribution Width 16.6 % (11.5-14.5)
[2019-11-30 15:12] LABS: Activated Partial Thrombo Time 28.1 Seconds (26.0-36.0)
[2019-11-30] MEDS: Metoprolol XL (24 HR) Succ 25 MG TAB.ER.24H PO SCH (15:15)
[2019-11-30 15:23] LABS: Albumin/Globulin Ratio 1.4 (1.1-2.2); Bilirubin,Direct 0.2 mg/dL (0.0-0.2); Bilirubin,Indirect 0.3 mg/dL (0.0-1.0); Bilirubin,Total 0.5 mg/dL (0.3-1.0); Globulin 2.2 g/dL (2.4-3.5); Total Protein 5.2 g/dL (6.4-8.9)
[2019-11-30 15:35] LABS: Heparin anti-factor XA UFH 0.06 IU/mL (0.30-0.70); INR 1.3; Prothrombin Time 14.9 Seconds (9.4-12.1)
[2019-11-30 15:39] LABS: ABG Base Excess -3 mEq/L (-2 to 3); ABG HCO3 20 mEq/L (21-27); ABG Oxygen Saturation 99 % (95-98); ABG PCO2 30 mmHg (35-45); ABG PH 7.45 pH Units (7.32-7.45); ABG PO2 117 mmHg (85-104); ABG TCO2 21 mEq/L (20-26)
[2019-11-30] MEDS ORDERED: Magnesium Sulfate 1 GM/102 ML PIGGYBACK IVPB ONE (16:51)
[2019-11-30 17:51] LABS: Magnesium 1.3 mg/dL (1.6-2.6); Phosphorous 2.7 mg/dL (2.7-4.5)
[2019-11-30] MEDS: *HR* FentaNYL PATCH 12 MCG PATCH TD SCH (18:03)
[2019-11-30] MEDS: Insulin LISPRO 300 UNITS/3 ML VIAL SQ SCH (18:35)
[2019-12-01] MEDS: Insulin LISPRO 300 UNITS/3 ML VIAL SQ SCH ×4 (00:51→18:02)
[2019-12-01 03:14] LABS: Hematocrit 26.9 % (35.3-44.9); Hemoglobin 8.2 g/dL (11.5-15.4); Mean Corpuscular HGB Conc 30.5 g/dL (31.6-35.5); Mean Corpuscular Hemoglobin 29.7 pg (28.0-33.3); Mean Corpuscular Volume 97.5 fL (83.0-100.0); Mean Platelet Volume 11.3 fL (9.4-12.4); Platelet Count 307 K/mcL (140-400); Red Blood Count 2.76 M/mcL (3.82-4.97); Red Cell Distribution Width 16.9 % (11.5-14.5); White Blood Count 14.8 K/mcL (4.3-11.1)
[2019-12-01 03:33] LABS: Magnesium 1.6 mg/dL (1.6-2.6); Phosphorous 2.1 mg/dL (2.7-4.5); Potassium 3.3 mEq/L (3.5-5.1)
[2019-12-01 03:39] LABS: Anisocytosis 1+ (Not Present); Lymphocytes # 1.2 K/mcL (0.6-4.6); Neutrophils # 13.3 K/mcL (1.6-8.9); Platelet Estimate Normal (Normal)
[2019-12-01] MEDS ORDERED: Acetaminophen IV 1,000 MG/100 ML INFUS..BTL IVPB ONE (04:33)
[2019-12-01] MEDS: DilTIAZem 50 MG/50 ML IV.SOLN IVC SCH (06:42)
[2019-12-01] MEDS ORDERED: Potassium Phosphate 44 MEQ in 0.9 % Sodium Chloride 250 ML IVPB ONE (07:27)
[2019-12-01] MEDS: Dexamethasone 4 MG/ML VIAL IVP SCH (08:08)
[2019-12-01] MEDS: Metoprolol XL (24 HR) Succ 25 MG TAB.ER.24H PO SCH ×2 (08:08→10:32)
[2019-12-01] MEDS: 0.9 % Sodium Chloride 1,000 ML IVC SCH (11:30)
[2019-12-01] MEDS ORDERED: Apixaban 5 MG TABLET PO SCH (13:00)
[2019-12-01] MEDS: Apixaban 2.5 MG TABLET PO SCH ×2 (13:27→19:48)
[2019-12-02] MEDS: Insulin LISPRO 300 UNITS/3 ML VIAL SQ SCH ×4 (00:01→18:03)
[2019-12-02] MEDS: 0.9 % Sodium Chloride 1,000 ML IVC SCH (03:31)
[2019-12-02 04:46] LABS: Hematocrit 23.6 % (35.3-44.9); Hemoglobin 7.3 g/dL (11.5-15.4); Lymphocytes # 1.3 K/mcL (0.6-4.6); Mean Corpuscular HGB Conc 30.9 g/dL (31.6-35.5); Mean Corpuscular Hemoglobin 30.8 pg (28.0-33.3); Mean Corpuscular Volume 99.6 fL (83.0-100.0); Mean Platelet Volume 10.9 fL (9.4-12.4); Platelet Count 266 K/mcL (140-400); Red Blood Count 2.37 M/mcL (3.82-4.97); White Blood Count 11.1 K/mcL (4.3-11.1)
[2019-12-02 04:56] LABS: Chol/HDL Ratio 5.1 (0-4.9)
[2019-12-02 04:58] LABS: Calcium 7.9 mg/dL (8.6-10.3); Magnesium 1.5 mg/dL (1.6-2.6); Potassium 3.7 mEq/L (3.5-5.1)
[2019-12-02 05:39] LABS: Monocytes # 1.1 K/mcL (0.0-1.3); Neutrophils # 7.6 K/mcL (1.6-8.9)
[2019-12-02 05:40] LABS: Anisocytosis 1+ (Not Present); Platelet Estimate Normal (Normal)
[2019-12-02] MEDS ORDERED: Magnesium Sulfate 1 GM/102 ML PIGGYBACK IVPB ONE (07:23)
[2019-12-02] MEDS ORDERED: D5% in 0.9% NACL 1,000 ML IVC SCH (07:30)
[2019-12-02] MEDS: Dexamethasone 4 MG/ML VIAL IVP SCH (08:56)
[2019-12-02] MEDS: Pantoprazole 40 MG VIAL IVP SCH (08:56)
[2019-12-02] MEDS: Magnesium Oxide 400 MG TABLET PO SCH (08:56)
[2019-12-02] MEDS: Metoprolol XL (24 HR) Succ 50 MG TAB.ER.24H PO SCH (08:57)
[2019-12-02] MEDS: Apixaban 2.5 MG TABLET PO SCH ×2 (08:57→20:16)
[2019-12-02] MEDS ORDERED: Metoprolol XL (24 HR) Succ 25 MG TAB.ER.24H PO SCH (09:00)
[2019-12-02] MEDS ORDERED: levoFLOXacin 500 MG/100 ML 500 MG/100 ML BAG IVPB SCH (14:00)
[2019-12-02 14:35] LABS: Hematocrit 24.9 % (35.3-44.9); Hemoglobin 7.7 g/dL (11.5-15.4)
[2019-12-02] MEDS: Meropenem 1,000 MG in Water for inj. (sterile) 20 ML IVP SCH (15:25)
[2019-12-02] MEDS: QUEtiapine Fumarate 25 MG TABLET PO SCH (20:16)
[2019-12-02 21:08] LABS: Hematocrit 26.9 % (35.3-44.9); Hemoglobin 8.2 g/dL (11.5-15.4)
[2019-12-03] MEDS: Insulin LISPRO 300 UNITS/3 ML VIAL SQ SCH ×4 (02:27→18:26)
[2019-12-03 04:21] LABS: Hematocrit 23.6 % (35.3-44.9); Hemoglobin 7.2 g/dL (11.5-15.4); Mean Corpuscular HGB Conc 30.5 g/dL (31.6-35.5); Mean Corpuscular Hemoglobin 30.4 pg (28.0-33.3); Mean Corpuscular Volume 99.6 fL (83.0-100.0); Mean Platelet Volume 11.2 fL (9.4-12.4); Nucleated Red Blood Cells 0.2 /100 WBC (0); Platelet Count 266 K/mcL (140-400); Red Blood Count 2.37 M/mcL (3.82-4.97); White Blood Count 8.5 K/mcL (4.3-11.1)
[2019-12-03 04:41] LABS: Magnesium 1.6 mg/dL (1.6-2.6); Potassium 3.5 mEq/L (3.5-5.1)
[2019-12-03 04:54] LABS: Anisocytosis 1+ (Not Present); Lymphocytes # 1.5 K/mcL (0.6-4.6); Monocytes # 0.2 K/mcL (0.0-1.3); Neutrophils # 6.6 K/mcL (1.6-8.9); Platelet Estimate Normal (Normal); Smudge Cells Present (Not Present)
[2019-12-03] MEDS: Meropenem 1,000 MG in Water for inj. (sterile) 20 ML IVP SCH ×2 (05:29→17:00)
[2019-12-03 06:31] LABS: Hemoglobin 7.3 g/dL (11.5-15.4)
[2019-12-03 07:54] LABS: Acinetobacter baumannii by PCR Not Detected (Not Detect); Candida albicans by PCR Not Detected (Not Detect); Candida glabrata by PCR Not Detected (Not Detect); Candida krusei by PCR Not Detected (Not Detect); Candida parapsilosis by PCR Not Detected (Not Detect); Candida tropicalis by PCR Not Detected (Not Detect); Enterobacter cloacae Cmplx PCR Not Detected (Not Detect); Enterobacteriaceae by PCR Not Detected (Not Detect); Enterococcus by PCR Not Detected (Not Detect); Escherichia coli by PCR Not Detected (Not Detect); Klebsiella oxytoca by PCR Not Detected (Not Detect); Klebsiella pneumoniae by PCR Not Detected (Not Detect); Proteus by PCR Not Detected (Not Detect); Pseudomonas aeruginosa by PCR Not Detected (Not Detect); Serratia marcescens by PCR Not Detected (Not Detect); Staphylococcus aureus by PCR Not Detected (Not Detect); Staphylococcus by PCR DETECTED (Not Detect); Streptococcus agalactiae(B)PCR Not Detected (Not Detect); Streptococcus by PCR Not Detected (Not Detect); Streptococcus pneumoniae PCR Not Detected (Not Detect); Streptococcus pyogenes (A) PCR Not Detected (Not Detect); mecA Methicillin-Resist Gene DETECTED (Not Detect)
[2019-12-03] MEDS: Dexamethasone 4 MG/ML VIAL IVP SCH (09:10)
[2019-12-03] MEDS: Apixaban 2.5 MG TABLET PO SCH ×2 (09:11→20:03)
[2019-12-03] MEDS: Metoprolol XL (24 HR) Succ 50 MG TAB.ER.24H PO SCH (09:11)
[2019-12-03] MEDS: Magnesium Oxide 400 MG TABLET PO SCH (09:11)
[2019-12-03] MEDS: Pantoprazole 40 MG VIAL IVP SCH (09:11)
[2019-12-03] MEDS: *HR* FentaNYL PATCH 12 MCG PATCH TD SCH (17:00)
[2019-12-03 17:29] LABS: Hemoglobin 7.6 g/dL (11.5-15.4)
[2019-12-03] MEDS: QUEtiapine Fumarate 25 MG TABLET PO SCH (19:59)
[2019-12-04] MEDS: Insulin LISPRO 300 UNITS/3 ML VIAL SQ SCH ×5 (00:12→20:08)
[2019-12-04] MEDS: Meropenem 1,000 MG in Water for inj. (sterile) 20 ML IVP SCH ×2 (05:34→18:16)
[2019-12-04 06:55] LABS: Hematocrit 26.3 % (35.3-44.9); Hemoglobin 8.2 g/dL (11.5-15.4); Mean Corpuscular HGB Conc 31.2 g/dL (31.6-35.5); Mean Corpuscular Hemoglobin 30.6 pg (28.0-33.3); Mean Corpuscular Volume 98.1 fL (83.0-100.0); Mean Platelet Volume 11.4 fL (9.4-12.4); Platelet Count 285 K/mcL (140-400); Red Blood Count 2.68 M/mcL (3.82-4.97); Red Cell Distribution Width 16.6 % (11.5-14.5)
[2019-12-04 07:05] LABS: Fibrinogen 404 mg/dL (169-393); White Blood Count 12.9 K/mcL (4.3-11.1)
[2019-12-04 07:09] LABS: D-Dimer 1496 ng/mLFEU (0-500)
[2019-12-04 07:21] LABS: Calcium 8.3 mg/dL (8.6-10.3); Magnesium 1.4 mg/dL (1.6-2.6); Phosphorous 2.6 mg/dL (2.7-4.5); Potassium 3.1 mEq/L (3.5-5.1)
[2019-12-04 08:42] LABS: Lymphocytes # 1.8 K/mcL (0.6-4.6); Monocytes # 0.8 K/mcL (0.0-1.3); Neutrophils # 9.8 K/mcL (1.6-8.9)
[2019-12-04 08:44] LABS: Platelet Estimate Normal (Normal)
[2019-12-04 08:45] LABS: Anisocytosis 1+ (Not Present)
[2019-12-04] MEDS ORDERED: Potassium Phosphate 44 MEQ in 0.9 % Sodium Chloride 250 ML IVPB ONE (08:58)
[2019-12-04] MEDS ORDERED: Magnesium Sulfate 1 GM/102 ML PIGGYBACK IVPB ONE (08:59)
[2019-12-04] MEDS: Apixaban 2.5 MG TABLET PO SCH ×2 (09:44→20:08)
[2019-12-04] MEDS: Pantoprazole 40 MG VIAL IVP SCH (09:44)
[2019-12-04] MEDS: Metoprolol XL (24 HR) Succ 50 MG TAB.ER.24H PO SCH (09:44)
[2019-12-04] MEDS: Magnesium Oxide 400 MG TABLET PO SCH (09:45)
[2019-12-04] MEDS: Dexamethasone 4 MG/ML VIAL IVP SCH (09:45)
[2019-12-04] MEDS: *HR* LORazepam 2 MG/ML VIAL IVP PRN ×2 (10:40→18:20)
[2019-12-04] MEDS ORDERED: Furosemide 20 MG/2 ML VIAL IVP ONE (14:42)
[2019-12-04] MEDS: QUEtiapine Fumarate 25 MG TABLET PO SCH (20:08)
[2019-12-05] MEDS: Meropenem 1,000 MG in Water for inj. (sterile) 20 ML IVP SCH ×2 (05:26→17:13)
[2019-12-05 06:02] LABS: D-Dimer 1155 ng/mLFEU (0-500); Hematocrit 26.7 % (35.3-44.9); Hemoglobin 8.2 g/dL (11.5-15.4); Mean Corpuscular HGB Conc 30.7 g/dL (31.6-35.5); Mean Corpuscular Hemoglobin 30.5 pg (28.0-33.3); Mean Corpuscular Volume 99.3 fL (83.0-100.0); Mean Platelet Volume 11.7 fL (9.4-12.4); Nucleated Red Blood Cells 0.1 /100 WBC (0); Platelet Count 243 K/mcL (140-400); Red Blood Count 2.69 M/mcL (3.82-4.97); Red Cell Distribution Width 16.9 % (11.5-14.5); White Blood Count 13.4 K/mcL (4.3-11.1)
[2019-12-05 06:03] LABS: Fibrinogen 483 mg/dL (169-393)
[2019-12-05 06:19] LABS: Calcium 8.1 mg/dL (8.6-10.3); Magnesium 1.7 mg/dL (1.6-2.6); Phosphorous 4.2 mg/dL (2.7-4.5); Potassium 3.4 mEq/L (3.5-5.1)
[2019-12-05 06:53] LABS: Lymphocytes # 1.3 K/mcL (0.6-4.6)
[2019-12-05 06:54] LABS: Anisocytosis 1+ (Not Present); Platelet Estimate Normal (Normal); Toxic Granulation Present (Not Present)
[2019-12-05] MEDS ORDERED: Potassium Chloride 20 MEQ, Lidocaine 1% 2 ML in 0.9 % Sodium Chloride 250 ML IVPB ONE (07:31)
[2019-12-05] MEDS: Magnesium Oxide 400 MG TABLET PO SCH (07:54)
[2019-12-05] MEDS: Metoprolol XL (24 HR) Succ 50 MG TAB.ER.24H PO SCH (07:54)
[2019-12-05] MEDS: Apixaban 2.5 MG TABLET PO SCH ×2 (07:54→21:33)
[2019-12-05] MEDS: Pantoprazole 40 MG VIAL IVP SCH (07:54)
[2019-12-05] MEDS: Dexamethasone 4 MG/ML VIAL IVP SCH (07:55)
[2019-12-05] MEDS: D5% in Water 500 ML IVC SCH ×2 (08:07→15:59)
[2019-12-05] MEDS: Insulin LISPRO 300 UNITS/3 ML VIAL SQ SCH ×4 (08:15→22:13)
[2019-12-05] MEDS ORDERED: Furosemide 20 MG/2 ML VIAL IVP SCH (09:00)
[2019-12-05] MEDS: *HR* LORazepam 2 MG/ML VIAL IVP PRN (11:06)
[2019-12-05 13:09] LABS: Albumin 2.7 g/dL (3.5-5.7); Albumin/Globulin Ratio 1.4 (1.1-2.2); Bilirubin,Direct 0.2 mg/dL (0.0-0.2); Bilirubin,Indirect 0.5 mg/dL (0.0-1.0); Bilirubin,Total 0.7 mg/dL (0.3-1.0); Total Protein 4.7 g/dL (6.4-8.9)
[2019-12-05] MEDS ORDERED: 0.9 % Sodium Chloride 250 ML IVC SCH (15:00)
[2019-12-05 15:59] LABS: BUN/Creatinine Ratio 26 (6-26); Blood Urea Nitrogen 26 mg/dL (8-23); Calcium 7.9 mg/dL (8.6-10.3); Carbon Dioxide 23 mEq/L (23-29); Chloride 114 mEq/L (98-107); Glucose 195 mg/dL (70-105); Osmolality,Calculated 308 (280-300); Potassium 3.3 mEq/L (3.5-5.1); Sodium 144 mEq/L (136-145); eGFR For African Americans > 60 (> 60); eGFR For Non-African Americans 53 (> 60)
[2019-12-05] MEDS ORDERED: Remdesivir 200 MG in 0.9 % Sodium Chloride 210 ML IVPB ONE (17:00)
[2019-12-05] MEDS: QUEtiapine Fumarate 25 MG TABLET PO SCH (21:34)
[2019-12-06] MEDS: D5% in Water 500 ML IVC SCH ×2 (00:46→06:45)
[2019-12-06] MEDS ORDERED: *HR* LORazepam 2 MG/ML VIAL IVP ONE (02:21)
[2019-12-06 04:09] LABS: Hematocrit 26.1 % (35.3-44.9); Hemoglobin 7.8 g/dL (11.5-15.4); Mean Corpuscular HGB Conc 29.9 g/dL (31.6-35.5); Mean Corpuscular Hemoglobin 29.3 pg (28.0-33.3); Mean Corpuscular Volume 98.1 fL (83.0-100.0); Nucleated Red Blood Cells 0.1 /100 WBC (0); Platelet Count 216 K/mcL (140-400); Red Blood Count 2.66 M/mcL (3.82-4.97); Red Cell Distribution Width 16.9 % (11.5-14.5); White Blood Count 15.4 K/mcL (4.3-11.1)
[2019-12-06 04:17] LABS: INR 2.3; Prothrombin Time 26.1 Seconds (9.4-12.1)
[2019-12-06 04:33] LABS: Alanine Aminotransferase 5 Units/L (7-52); Albumin 2.5 g/dL (3.5-5.7); Albumin/Globulin Ratio 1.3 (1.1-2.2); Alkaline Phosphatase 47 Units/L (34-104); Aspartate Amino Transferase 12 Units/L (13-39); BUN/Creatinine Ratio 27 (6-26); Bilirubin,Total 0.6 mg/dL (0.3-1.0); Blood Urea Nitrogen 25 mg/dL (8-23); Calcium 7.7 mg/dL (8.6-10.3); Carbon Dioxide 22 mEq/L (23-29); Chloride 112 mEq/L (98-107); Glucose 134 mg/dL (70-105); Osmolality,Calculated 306 (280-300); Potassium 3.5 mEq/L (3.5-5.1); Sodium 145 mEq/L (136-145); Total Protein 4.5 g/dL (6.4-8.9); eGFR For African Americans > 60 (> 60); eGFR For Non-African Americans 58 (> 60)
[2019-12-06 05:17] LABS: Lymphocytes # 1.9 K/mcL (0.6-4.6); Neutrophils # 13.6 K/mcL (1.6-8.9)
[2019-12-06 05:18] LABS: Anisocytosis 1+ (Not Present); Platelet Estimate Normal (Normal); Smudge Cells Present (Not Present)
[2019-12-06] MEDS: Meropenem 1,000 MG in Water for inj. (sterile) 20 ML IVP SCH ×2 (06:36→17:48)
[2019-12-06] MEDS: Insulin LISPRO 300 UNITS/3 ML VIAL SQ SCH ×4 (08:52→22:24)
[2019-12-06] MEDS: Magnesium Oxide 400 MG TABLET PO SCH ×2 (10:09→10:42)
[2019-12-06] MEDS: Metoprolol XL (24 HR) Succ 50 MG TAB.ER.24H PO SCH ×2 (10:09→10:42)
[2019-12-06] MEDS: Apixaban 2.5 MG TABLET PO SCH ×2 (10:10→10:41)
[2019-12-06] MEDS: Dexamethasone 4 MG/ML VIAL IVP SCH (10:10)
[2019-12-06] MEDS: Remdesivir 100 MG in 0.9 % Sodium Chloride 230 ML IVPB SCH (17:47)
[2019-12-06] MEDS ORDERED: Isovue-370 500 ML BOTTLE IVP ONE (17:58)
[2019-12-06 18:29] LABS: Troponin I 0.12 ng/mL (< 0.04)
[2019-12-06] MEDS ORDERED: *HR* Heparin 5,000 UNIT/ML VIAL IVP PRN ×2 (18:35)
[2019-12-06] MEDS ORDERED: *HR* Heparin 5,000 UNIT/ML VIAL IVP ONE (18:35)
[2019-12-06 19:57] LABS: INR 1.8; Prothrombin Time 20.8 Seconds (9.4-12.1)
[2019-12-06 20:05] LABS: Hematocrit 26.9 % (35.3-44.9); Hemoglobin 8.2 g/dL (11.5-15.4); Mean Corpuscular HGB Conc 30.5 g/dL (31.6-35.5); Mean Corpuscular Hemoglobin 30.3 pg (28.0-33.3); Mean Corpuscular Volume 99.3 fL (83.0-100.0); Mean Platelet Volume 11.8 fL (9.4-12.4); Platelet Count 241 K/mcL (140-400); Red Blood Count 2.71 M/mcL (3.82-4.97); Red Cell Distribution Width 16.8 % (11.5-14.5); White Blood Count 14.5 K/mcL (4.3-11.1)
[2019-12-06 20:17] LABS: Heparin anti-factor XA UFH 1.82 IU/mL (0.30-0.70)
[2019-12-06] MEDS: QUEtiapine Fumarate 25 MG TABLET PO SCH (21:52)
[2019-12-06 21:57] LABS: BUN/Creatinine Ratio 29 (6-26); Blood Urea Nitrogen 22 mg/dL (8-23); Calcium 7.9 mg/dL (8.6-10.3); Carbon Dioxide 24 mEq/L (23-29); Chloride 111 mEq/L (98-107); Glucose 130 mg/dL (70-105); Osmolality,Calculated 301 (280-300); Potassium 3.2 mEq/L (3.5-5.1); Sodium 143 mEq/L (136-145); Troponin I 0.09 ng/mL (< 0.04); eGFR For African Americans > 60 (> 60); eGFR For Non-African Americans > 60 (> 60)
[2019-12-06] MEDS ORDERED: Haloperidol Lactate 5 MG/ML VIAL IVP ONE (23:57)
[2019-12-07 01:01] LABS: Hematocrit 26.8 % (35.3-44.9); Hemoglobin 8.2 g/dL (11.5-15.4); Mean Corpuscular HGB Conc 30.6 g/dL (31.6-35.5); Mean Corpuscular Hemoglobin 29.7 pg (28.0-33.3); Mean Corpuscular Volume 97.1 fL (83.0-100.0); Mean Platelet Volume 11.7 fL (9.4-12.4); Platelet Count 261 K/mcL (140-400); Red Blood Count 2.76 M/mcL (3.82-4.97); Red Cell Distribution Width 16.8 % (11.5-14.5); White Blood Count 16.7 K/mcL (4.3-11.1)
[2019-12-07 01:03] LABS: INR 1.9; Prothrombin Time 21.1 Seconds (9.4-12.1)
[2019-12-07] MEDS ORDERED: Haloperidol Lactate 5 MG/ML VIAL IVP ONE ×3 (01:06→05:18)
[2019-12-07] MEDS: QUEtiapine Fumarate 25 MG TABLET PO SCH ×2 (01:15→21:12)
[2019-12-07 01:16] LABS: Alanine Aminotransferase 6 Units/L (7-52); Albumin 2.7 g/dL (3.5-5.7); Albumin/Globulin Ratio 1.3 (1.1-2.2); Alkaline Phosphatase 53 Units/L (34-104); Aspartate Amino Transferase 18 Units/L (13-39); BUN/Creatinine Ratio 30 (6-26); Bilirubin,Total 0.7 mg/dL (0.3-1.0); Blood Urea Nitrogen 22 mg/dL (8-23); Calcium 7.9 mg/dL (8.6-10.3); Carbon Dioxide 22 mEq/L (23-29); Chloride 111 mEq/L (98-107); Globulin 2.1 g/dL (2.4-3.5); Glucose 100 mg/dL (70-105); Osmolality,Calculated 301 (280-300); Potassium 3.1 mEq/L (3.5-5.1); Sodium 144 mEq/L (136-145); Total Protein 4.8 g/dL (6.4-8.9); eGFR For African Americans > 60 (> 60); eGFR For Non-African Americans > 60 (> 60)
[2019-12-07] MEDS: Heparin 25,000UNIT/250ML 1/2NS 25,000 UNIT/250 ML IV.SOLN IVC SCH (01:19)
[2019-12-07] MEDS: Meropenem 1,000 MG in Water for inj. (sterile) 20 ML IVP SCH ×2 (05:49→17:12)
[2019-12-07] MEDS ORDERED: *HR* Metoprolol 5 MG/5 ML VIAL IVP ONE (06:07)
[2019-12-07] MEDS ORDERED: Potassium Chloride 40 MEQ, Lidocaine 1% 2 ML in 0.9 % Sodium Chloride 500 ML IVPB ONE (07:24)
[2019-12-07] MEDS ORDERED: Perflutren Lipid Microsphere 1.3 ML in 0.9 % Sodium Chloride 8.7 ML IVP PRN (08:29)
[2019-12-07] MEDS: Dexmedetomidine HCl 400 MCG/100 ML MLS IVC SCH ×2 (08:57→23:42)
[2019-12-07] MEDS: Magnesium Oxide 400 MG TABLET PO SCH (08:58)
[2019-12-07] MEDS: Dexamethasone 4 MG/ML VIAL IVP SCH (08:58)
[2019-12-07] MEDS: Metoprolol XL (24 HR) Succ 50 MG TAB.ER.24H PO SCH (09:01)
[2019-12-07] MEDS: Insulin LISPRO 300 UNITS/3 ML VIAL SQ SCH ×4 (09:42→21:11)
[2019-12-07] MEDS ORDERED: *HR* Metoprolol 5 MG/5 ML VIAL IVP PRN (10:30)
[2019-12-07 13:44] LABS: ABG Base Excess 1 mEq/L (-2 to 3); ABG HCO3 25 mEq/L (21-27); ABG Oxygen Saturation 100 % (95-98); ABG PCO2 39 mmHg (35-45); ABG PH 7.42 pH Units (7.32-7.45); ABG PO2 184 mmHg (85-104); ABG TCO2 27 mEq/L (20-26); Blood Gas Pressure Support 12 cm H2O
[2019-12-07] MEDS ORDERED: Morphine Sulfate Oral CONC 10 MG/0.5 ML ORAL.SYG SL PRN (14:42)
[2019-12-07] MEDS: Haloperidol Oral Conc 10 MG/5 ML UDC PO SCH ×2 (17:13→21:12)
[2019-12-07] MEDS: Remdesivir 100 MG in 0.9 % Sodium Chloride 230 ML IVPB SCH (18:13)
[2019-12-07 23:35] LABS: BUN/Creatinine Ratio 27 (6-26); Blood Urea Nitrogen 20 mg/dL (8-23); Calcium 8.1 mg/dL (8.6-10.3); Carbon Dioxide 24 mEq/L (23-29); Chloride 115 mEq/L (98-107); Glucose 115 mg/dL (70-105); Osmolality,Calculated 308 (280-300); Potassium 3.6 mEq/L (3.5-5.1); Sodium 147 mEq/L (136-145); eGFR For African Americans > 60 (> 60); eGFR For Non-African Americans > 60 (> 60)
[2019-12-08 04:44] LABS: Hemoglobin 7.2 g/dL (11.5-15.4); Mean Platelet Volume 11.7 fL (9.4-12.4)
[2019-12-08 04:45] LABS: Mean Corpuscular Hemoglobin 30.3 pg (28.0-33.3); Mean Corpuscular Volume 100.8 fL (83.0-100.0); Platelet Count 201 K/mcL (140-400); Red Blood Count 2.38 M/mcL (3.82-4.97); Red Cell Distribution Width 16.9 % (11.5-14.5); White Blood Count 8.8 K/mcL (4.3-11.1)
[2019-12-08 04:48] LABS: INR 1.9; Prothrombin Time 21.3 Seconds (9.4-12.1)
[2019-12-08 05:02] LABS: Alanine Aminotransferase 6 Units/L (7-52); Albumin 2.5 g/dL (3.5-5.7); Albumin/Globulin Ratio 1.3 (1.1-2.2); Alkaline Phosphatase 52 Units/L (34-104); Aspartate Amino Transferase 16 Units/L (13-39); BUN/Creatinine Ratio 30 (6-26); Bilirubin,Total 0.6 mg/dL (0.3-1.0); Blood Urea Nitrogen 20 mg/dL (8-23); Calcium 7.8 mg/dL (8.6-10.3); Carbon Dioxide 22 mEq/L (23-29); Chloride 117 mEq/L (98-107); Globulin 1.9 g/dL (2.4-3.5); Glucose 107 mg/dL (70-105); Osmolality,Calculated 307 (280-300); Potassium 3.4 mEq/L (3.5-5.1); Sodium 147 mEq/L (136-145); Total Protein 4.4 g/dL (6.4-8.9); eGFR For African Americans > 60 (> 60); eGFR For Non-African Americans > 60 (> 60)
[2019-12-08] MEDS: Dexmedetomidine HCl 400 MCG/100 ML MLS IVC SCH ×2 (06:19→14:30)
[2019-12-08] MEDS: Meropenem 1,000 MG in Water for inj. (sterile) 20 ML IVP SCH ×2 (06:20→17:33)
[2019-12-08] MEDS ORDERED: Potassium Chloride 20 MEQ, Lidocaine 1% 2 ML in 0.9 % Sodium Chloride 250 ML IVPB ONE (07:15)
[2019-12-08] MEDS: D5% in Water 1,000 ML IVC SCH (08:30)
[2019-12-08] MEDS: Dexamethasone 4 MG/ML VIAL IVP SCH (08:31)
[2019-12-08] MEDS: Insulin LISPRO 300 UNITS/3 ML VIAL SQ SCH ×4 (09:14→20:04)
[2019-12-08] MEDS: Heparin 25,000UNIT/250ML 1/2NS 25,000 UNIT/250 ML IV.SOLN IVC SCH ×2 (09:15→23:38)
[2019-12-08] MEDS: Haloperidol Oral Conc 10 MG/5 ML UDC PO SCH ×3 (09:15→19:52)
[2019-12-08] MEDS: Magnesium Oxide 400 MG TABLET PO SCH (09:15)
[2019-12-08] MEDS: Metoprolol XL (24 HR) Succ 50 MG TAB.ER.24H PO SCH (09:15)
[2019-12-08] MEDS: Remdesivir 100 MG in 0.9 % Sodium Chloride 230 ML IVPB SCH (17:20)
[2019-12-08 17:31] LABS: BUN/Creatinine Ratio 30 (6-26); Blood Urea Nitrogen 20 mg/dL (8-23); Calcium 7.7 mg/dL (8.6-10.3); Carbon Dioxide 21 mEq/L (23-29); Chloride 113 mEq/L (98-107); Glucose 213 mg/dL (70-105); Osmolality,Calculated 301 (280-300); Potassium 4.3 mEq/L (3.5-5.1); Sodium 141 mEq/L (136-145); eGFR For African Americans > 60 (> 60); eGFR For Non-African Americans > 60 (> 60)
[2019-12-08] MEDS: QUEtiapine Fumarate 25 MG TABLET PO SCH (19:52)
[2019-12-09] MEDS: D5% in Water 1,000 ML IVC SCH (02:06)
[2019-12-09 04:16] LABS: Hematocrit 25.2 % (35.3-44.9); Hemoglobin 7.5 g/dL (11.5-15.4); INR 2.1; Mean Corpuscular HGB Conc 29.8 g/dL (31.6-35.5); Mean Corpuscular Hemoglobin 29.2 pg (28.0-33.3); Mean Corpuscular Volume 98.1 fL (83.0-100.0); Platelet Count 265 K/mcL (140-400); Prothrombin Time 23.5 Seconds (9.4-12.1); Red Blood Count 2.57 M/mcL (3.82-4.97); Red Cell Distribution Width 16.8 % (11.5-14.5)
[2019-12-09 04:31] LABS: Alanine Aminotransferase 7 Units/L (7-52); Albumin 2.5 g/dL (3.5-5.7); Albumin/Globulin Ratio 1.3 (1.1-2.2); Alkaline Phosphatase 65 Units/L (34-104); Aspartate Amino Transferase 15 Units/L (13-39); BUN/Creatinine Ratio 30 (6-26); Bilirubin,Total 0.6 mg/dL (0.3-1.0); Blood Urea Nitrogen 19 mg/dL (8-23); Calcium 7.6 mg/dL (8.6-10.3); Carbon Dioxide 24 mEq/L (23-29); Chloride 108 mEq/L (98-107); Glucose 145 mg/dL (70-105); Osmolality,Calculated 293 (280-300); Potassium 3.6 mEq/L (3.5-5.1); Sodium 139 mEq/L (136-145); Total Protein 4.5 g/dL (6.4-8.9); eGFR For African Americans > 60 (> 60); eGFR For Non-African Americans > 60 (> 60)
[2019-12-09 04:33] LABS: Activated Partial Thrombo Time 71.5 Seconds (26.0-36.0)
[2019-12-09] MEDS: Meropenem 1,000 MG in Water for inj. (sterile) 20 ML IVP SCH (05:37)
[2019-12-09] MEDS: Dexmedetomidine HCl 400 MCG/100 ML MLS IVC SCH ×2 (06:38→16:19)
[2019-12-09] MEDS ORDERED: Furosemide 40 MG/4 ML VIAL IVP ONE (07:16)
[2019-12-09] MEDS: Insulin LISPRO 300 UNITS/3 ML VIAL SQ SCH ×4 (08:00→20:17)
[2019-12-09] MEDS: Dexamethasone 4 MG/ML VIAL IVP SCH (08:05)
[2019-12-09] MEDS: Haloperidol Oral Conc 10 MG/5 ML UDC PO SCH ×3 (08:06→19:46)
[2019-12-09] MEDS: Magnesium Oxide 400 MG TABLET PO SCH (08:06)
[2019-12-09] MEDS: Metoprolol XL (24 HR) Succ 50 MG TAB.ER.24H PO SCH (08:06)
[2019-12-09] MEDS: Remdesivir 100 MG in 0.9 % Sodium Chloride 230 ML IVPB SCH (17:23)
[2019-12-09] MEDS: QUEtiapine Fumarate 25 MG TABLET PO SCH (19:46)
[2019-12-10] MEDS ORDERED: 0.9 % Sodium Chloride 500 ML IVC ONE (03:58)
[2019-12-10] MEDS ORDERED: 0.9 % Sodium Chloride 500 ML IV ONE (03:59)
[2019-12-10] MEDS ORDERED: 0.9 % Sodium Chloride 500 ML ONE (03:59)
[2019-12-10] MEDS ORDERED: Acetaminophen IV 1,000 MG/100 ML INFUS..BTL IVPB ONE (04:07)
[2019-12-10] MEDS ORDERED: Norepinephrine 4 MG/254 ML IV.SOLN IVC SCH (04:30)
[2019-12-10 05:10] LABS: ABG Base Excess 1 mEq/L (-2 to 3); ABG HCO3 22 mEq/L (21-27); ABG Oxygen Saturation 92 % (95-98); ABG PCO2 25 mmHg (35-45); ABG PH 7.56 pH Units (7.32-7.45); ABG PO2 54 mmHg (85-104); ABG TCO2 23 mEq/L (20-26)
[2019-12-10 05:32] LABS: Hematocrit 29.6 % (35.3-44.9); Hemoglobin 8.6 g/dL (11.5-15.4); INR 2.6; Mean Corpuscular HGB Conc 29.1 g/dL (31.6-35.5); Mean Corpuscular Hemoglobin 29.4 pg (28.0-33.3); Mean Platelet Volume 11.9 fL (9.4-12.4); Platelet Count 334 K/mcL (140-400); Prothrombin Time 29.8 Seconds (9.4-12.1); Red Blood Count 2.93 M/mcL (3.82-4.97); Red Cell Distribution Width 16.8 % (11.5-14.5); White Blood Count 18.5 K/mcL (4.3-11.1)
[2019-12-10 05:35] LABS: Activated Partial Thrombo Time 52.6 Seconds (26.0-36.0)
[2019-12-10 05:56] LABS: Alanine Aminotransferase 7 Units/L (7-52); Albumin 2.8 g/dL (3.5-5.7); Albumin/Globulin Ratio 1.3 (1.1-2.2); Alkaline Phosphatase 76 Units/L (34-104); Aspartate Amino Transferase 15 Units/L (13-39); BUN/Creatinine Ratio 24 (6-26); Bilirubin,Total 0.9 mg/dL (0.3-1.0); Blood Urea Nitrogen 20 mg/dL (8-23); Calcium 7.9 mg/dL (8.6-10.3); Carbon Dioxide 21 mEq/L (23-29); Chloride 107 mEq/L (98-107); Globulin 2.1 g/dL (2.4-3.5); Glucose 71 mg/dL (70-105); Osmolality,Calculated 295 (280-300); Potassium 3.3 mEq/L (3.5-5.1); Sodium 142 mEq/L (136-145); Total Protein 4.9 g/dL (6.4-8.9); eGFR For African Americans > 60 (> 60); eGFR For Non-African Americans > 60 (> 60)
[2019-12-10 07:28] VITALS: BP 162/87
[2019-12-10] MEDS ORDERED: Meropenem 1,000 MG in Water for inj. (sterile) 20 ML IVP SCH (07:28)
[2019-12-10] MEDS ORDERED: Isovue-370 500 ML BOTTLE IVP ONE (07:30)
[2019-12-10] MEDS: Insulin LISPRO 300 UNITS/3 ML VIAL SQ SCH (09:11)
[2019-12-10] MEDS: Haloperidol Oral Conc 10 MG/5 ML UDC PO SCH ×3 (09:12→20:37)
[2019-12-10] MEDS: Magnesium Oxide 400 MG TABLET PO SCH (09:12)
[2019-12-10] MEDS: Metoprolol XL (24 HR) Succ 50 MG TAB.ER.24H PO SCH (09:13)
[2019-12-10] MEDS: Dexamethasone 4 MG/ML VIAL IVP SCH (09:37)
[2019-12-10] MEDS: Morphine Sulfate 2 MG/ML SYRINGE IVP PRN ×3 (16:50→22:20)
[2019-12-10] MEDS: *HR* LORazepam 2 MG/ML VIAL IVP PRN ×2 (18:33→22:38)
[2019-12-10] MEDS ORDERED: Atropine Sulfate 1% 40 DROP/2 ML BOTTLE SL PRN (22:24)
== END 2019-12-11 01:45 | disposition expired | DRG 698 ==
LOC: 2NENU 09:49 → EMEROOARM 09:49 → 2NENU 14:09 → SUATTDRO 15:27
PROVIDERS: ADMIT Internal Medicine; ATTEND Internal Medicine